=== PATIENT | male | born 1950 | race Caucasian/White ===

== ENCOUNTER → 2023-05-15 | Outpatient (CLI) | payer MEDICARE, OTHER, SELFPAY ==
--- NOTE | 2023-05-15 07:30 | PET_ITS ---
EXAMINATION: FDG PET/CT INDICATIONS: 73-year-old male with a history of multiple myeloma presenting for restaging examination. COMPARISON EXAMINATION: None available INDEX LESION SIZE SUV INTERPRETATION Carinal-level mediastinum to the left of the midline ? 2.5 max Quantitative criteria for viable neoplasm are not fulfilled ? TECHNIQUE: Following the intravenous administration of 13.496 mCi of F-18 deoxyglucose via the right hand, multiplanar image acquisitions of the head, neck, chest, abdomen, pelvis, and lower extremities to the level of the bilateral forefoot, obtained at one-hour post radiopharmaceutical administration contemporaneously interpreted with the current CT of the chest, abdomen, pelvis, and lower extremities dated 05/15/2023. Via coregistration reveal: SERUM GLUCOSE LEVEL: 90 mg/dL HEIGHT: 66 inches WEIGHT: 176 pounds FINDINGS: HEAD/NECK: There is no evidence of abnormal increased glucose metabolism in the pharyngeal mucosal space, parapharyngeal space, oropharynx, bilateral-lateral and anterior neck, hypopharynx and distribution of the larynx. The visualized portion of the cerebral cortical-subcortical structures demonstrate symmetric and preserved glucose metabolism. CHEST: Enhanced tracer uptake is noted in the carinal-level mediastinum to the left of the midline involving the left lower paratracheal lymph nodes involving lymph node station 4L. The calculated standard uptake value is 2.5. There is visualized radiopharmaceutical concentration noted in the left ventricular myocardium, consistent with the fed state. CT of the chest demonstrates the following anatomic characteristics: Atherosclerotic calcification is defined in the thoracic aorta without evidence of dilatation, aneurysm formation. Coronary arterial calcification is observed. Calcified and non-calcified mediastinal and thoracic perihilar as well as bilateral axillary soft tissue densities are ametabolic. There are no parenchymal densities-nodules defined in the right and left hemithorax with quantitatively significant increased FDG uptake. ABDOMEN/PELVIS: Normal physiologic distribution of the radiopharmaceutical is identified in the hepatic and splenic parenchyma, both renal units, urinary bladder, and visualized intestinal tract. Diffuse intestinal tract is identified in all four quadrants of the abdomen and pelvis. CT of the abdomen and pelvis is remarkable for the following: Atherosclerotic calcification is defined in the abdominal aorta without evidence of dilatation, aneurysm formation. Abdominal-pelvic arterial calcification is observed. Calcified phlebolith formation is noted in the bilateral lower hemipelvis. Right-left inguinal soft tissue densities are ametabolic. Minimal calcification is defined within the prostate gland. SKELETAL: A compression deformity is noted at the level of the first lumbar vertebra. Degenerative changes defined in the thoracic and lumbar spine demonstrate no evidence of increased glucose metabolism. There are no sclerotic, mixed sclerotic-lytic, or primarily lytic changes defined in the axial skeletal structures with evidence of increased FDG uptake. PET/PET/CT Tumor WB Initial IMPRESSION: 1. NEGATIVE EXAMINATION. There is no definitive quantitatively significant scintigraphic evidence of recurrent-viable neoplasm. 2. Facilitated uptake noted in the left lower paratracheal lymph node station does not fulfill quantitative criteria for malignant transformation. (Angela et al, Journal of Clinical Oncology, 16:2142, 1998). Electronic Signature Shai Woo D.O. Accurate Quantification of SUVs for this report are calculated using the exclusive [employer]. (U.S. Patent No. [id number] [phone] B2 US [phone] [place] patent [phone]). Standardization and correction of the FDG SUV metric via [employer] technology allow for vendor non-specific objective quantitative examination comparison and optimization of the sensitivity and specificity of the FDG PET-CT examination. Electronically Signed: Shai Woo, at 8:00 EDT ,
== END | disposition home or self-care (01) ==
LOC: ONC 07:07
PROVIDERS: PCP Internal Medicine; Referring Provider Internal Medicine Hematology & Oncology; Visit Provider Internal Medicine Hematology & Oncology
DX: C90.00 Multiple myeloma not having achieved remission (principal)
CPT/HCPCS: 78816; A9552

== ENCOUNTER → 2023-07-17 | Outpatient (CLI) | payer OTHER, SELFPAY | END | disposition home or self-care (01) | LOC: LABSPEC 12:00 | PROVIDERS: PCP Internal Medicine; Referring Provider Internal Medicine Hematology & Oncology; Visit Provider Internal Medicine Hematology & Oncology | DX: C90.00 Multiple myeloma not having achieved remission (principal) | CPT/HCPCS: 86850; 86900; 86901 ==

== ENCOUNTER 2024-01-28 15:09 | Inpatient (IN) | payer OTHER, MEDICARE, SELFPAY ==
[2024-01-28] VITALS (12 sets, daily range): BP systolic 117–148; BP diastolic 65–78; PULSE 71–75; RESP 18–25; TEMP 36.8–38.4; O2SAT 90–96; BMI 31.4; BMI 30.9
--- NOTE | 2024-01-28 15:33 | EKG12_ITS ---
Test Reason : SOB Blood Pressure : / mmHG Vent. Rate : 070 BPM Atrial Rate : 070 BPM P-R Int : 204 ms QRS Dur : 092 ms QT Int : 378 ms P-R-T Axes : 088 -26 021 degrees QTc Int : 408 ms Normal sinus rhythm Inferior infarct , age undetermined Abnormal ECG Confirmed by Ehsan Terry ([id number]), department editor TANIA CRUZ ([id number]) on 01/29/2024 1:43:59 PM Referred By: Confirmed By:Ehsan Terry
--- NOTE | 2024-01-28 15:34 | ED.VIS.DYS ---
HPI History of Present Illness Chief Complaint: Shortness of Breath Informant: patient and spouse/S.O. Narrative Narrative: 74-year-old male has multiple myeloma, usually does 3 weeks of treatments and then has 1 week off and during that week, follows with oncology in the clinic for a checkup which is what he was doing today with Dr. Venegas, it was noticed that his oxygen levels were low, he is not on oxygen at home, so he was sent to the ER for further evaluation. Patient states he has had dyspnea with exertion for couple weeks that has been relatively mild not severe. No chest discomfort with exertion. He has a chronic minor cough, it has been worse for the last 2 or 3 days, he is coughed up some occasional small amount of blood in the past week or so. He denies any history of DVT or PE, denies any recent focal leg pain or swelling although he does have chronic edema both of his legs that is doing relatively well with his compression stockings, and denies any pleuritic chest discomfort, or syncopal episodes recently. Says he has felt cold and hot like he may have a fever, the last time was yesterday, but has not checked his temperature. He denies any history of chronic lung problems. He had stent placed in his heart 20 years ago but denies any known other heart issues. [facility] Medical History (Updated 01/28/24 @ 18:50 by Isamar Myers) CAD (coronary artery disease) Chest pain CPAP (continuous positive airway pressure) dependence Depression Hypertension Multiple myeloma Myocardial infarct Non-smoker Sleep apnea Home Medications amlodipine 10 mg tablet 10 mg PO DAILY 01/28/24 [History Last Taken 01/28/24 08:00] aspirin 325 mg tablet 325 mg PO QHS 01/28/24 [History Last Taken Unknown] cholecalciferol (vitamin D3) 125 mcg (5,000 unit) tablet (Vitamin D3) 125 mcg PO QHS 01/28/24 [History Last Taken Unknown] ezetimibe 10 mg tablet 10 mg PO DAILY 01/28/24 [History Last Taken Unknown] lansoprazole 30 mg capsule,delayed release (Prevacid) 30 mg PO DAILY 01/28/24 [History Last Taken Unknown] niacin 1,000 mg tablet,extended release 24 hr 2,000 mg PO DAILY 01/28/24 [History Last Taken 01/28/24 08:00] nitroglycerin 0.4 mg sublingual tablet 0.4 mg sublingual UD 01/28/24 [History Last Taken Unknown] ramipril 10 mg capsule 10 mg PO BID 01/28/24 [History Last Taken Unknown] Allergy/AdvReac Type Severity Reaction Status Date / Time No Known Allergies Allergy Verified 01/28/24 15:09 Surgical History (Updated 01/28/24 @ 18:48 by Isamar Myers) History of coronary artery stent placement Social History (Updated 01/28/24 @ 17:[address] Cale Webster, DO) Smoking Status: Unknown if ever smoked alcohol intake: current alcohol intake frequency: 3 or more drinks per day ROS ROS ED Constitutional Constitutional ED: Reports fever(s) and subjective; Denies chills Eyes Eyes: Denies change in vision or diplopia ENT ENT ED: Denies rhinorrhea or sore throat Cardiovascular Cardiovascular: Reports leg edema; Denies chest pain, lightheadedness, palpitations or syncope Respiratory/Chest Respiratory/Chest: Reports cough, dyspnea on exertion and other Details: rare streaky hemoptysis in past week; no other sputum Gastrointestinal Gastrointestinal: Denies abdominal pain, diarrhea, nausea or vomiting Genitourinary Genitourinary ED: Denies dysuria or hematuria Musculoskeletal Musculoskeletal: Denies back pain or neck pain Integumentary Denies abscess or rash Neurologic Neurologic: Denies headache(s), paresthesias or weakness Psychiatric Psychiatric: Denies anxiety or suicidal thoughts EXAM Physical Exam Const Vital Signs: 01/28/24 15:09 01/28/24 15:25 01/28/24 15:37 Temperature 98.2 F Temperature Source Temporal Pulse Rate 71 71 Respiratory Rate 18 25 H Respiratory Effort Short of Breath Blood Pressure 129/78 H 128/65 H Blood Pressure Mean 95 86 Pulse Ox 94 92 Oxygen Delivery Method Room Air Room Air Room Air Oxygen Flow Rate (L/min) 01/28/24 15:52 01/28/24 16:02 01/28/24 16:14 Temperature Temperature Source Pulse Rate 71 Respiratory Rate 22 H Respiratory Effort Blood Pressure 139/74 H Blood Pressure Mean 95 Pulse Ox 91 95 92 Oxygen Delivery Method Nasal Cannula Nasal Cannula Nasal Cannula Oxygen Flow Rate (L/min) 3 2 2 01/28/24 17:34 Temperature 99.3 F H Temperature Source Pulse Rate 74 Respiratory Rate 23 H Respiratory Effort Blood Pressure 134/70 H Blood Pressure Mean 91 Pulse Ox 94 Oxygen Delivery Method Oxygen Flow Rate (L/min) Positive well nourished and well developed General Appearance ED: well developed and NAD HEENT Reports moist mucous membranes normocephalic and atraumatic Eyes PERRL and EOMs intact bilaterally Neck full ROM, no lymphadenopathy, supple, no meningeal signs and no JVD Resp normal respiratory effort and clear to auscultation bilaterally Cardio regular rate, regular rhythm and no murmurs Rate: Negative for tachycardic GI non-tender and non-distended Auscultation: normoactive bowel sounds Palpation: soft Back/Spine no CVA tenderness General Back: other FROM Extremity normal to inspection General Extremety ED: Yes edema; Negative for pulses abnormal or tenderness General Extremity: edema bilateral lower extremity Details: mild; Negative for pulses abnormal Neuro oriented x3, CN's II-XII intact bilaterally and no sensory deficits noted Sensorium / Orientation: awake and alert Motor Exam: strength 5/5 throughout Psych mental status grossly normal Skin no rashes or lesions noted and no wounds MDM MDM MDM Narrative Medical decision making narrative: Patient diffusely diminished clinically, but no other adventitious breath sounds and breathing well at rest. He did down into the high 80s on room air, just resting. He required 2 L nasal cannula to keep him above 90%. 2 view chest x-ray my interpretation shows bilateral lower lobe infiltrates, radiology in agreement with this. Given his clinical symptoms, this is consistent with the cause for his hypoxemia and I do not think he needs CTA right now nor a D-dimer since he does not have any asymmetric edema in his legs nor pleuritic chest discomfort. Given his hypoxemia and he does not have home oxygen or any chronic lung problems, plan is for admission. IV Levaquin started. He is not septic. Lab Data Attestation: I reviewed the patient's lab results. Labs: Laboratory Results - last 24 hr 01/28/24 16:00 WBC 7.0 RBC 3.63 L Hgb 12.3 L Hct 35.8 L MCV 98.6 H MCH 33.9 H MCHC 34.4 RDW Std Deviation 53.5 H RDW Coeff of Cheryle 14.6 Plt Count 277 MPV 9.6 Immature Gran % (Auto) 0.700 Neut % (Auto) 70.7 H Lymph % (Auto) 5.3 L [place] % (Auto) 20.4 H Eos % (Auto) 1.9 Baso % (Auto) 1.0 Absolute Neuts (auto) 5.0 Absolute Lymphs (auto) 0.37 L Nucleated RBC % 0 Sodium 128 L Potassium 4.1 Chloride 97 L Carbon Dioxide 24.0 Anion Gap 7 BUN 9 Creatinine 0.88 Estim Creat Clear Calc 79.28 Est GFR (MDRD) Af Amer 109 Est GFR (MDRD) Non-Af 90 BUN/Creatinine Ratio 10.2 Glucose 96 Calcium 8.6 Troponin I High Sens 12 B-Natriuretic Peptide 119.9 H Radiography Diagnostic Testing: Clinical Impression(s) from Imaging Studies Chest X-Ray 01/28/24 16:04 IMPRESSION: Bilateral lower lobe pneumonia. Electronically Signed: Josué Lee MD at 16:24 EDT , Rhythm Strip Rhythm Strip: Sinus Rhythm Rate: 70 Ectopy: None EKG Initial EKG: Attestation: I personally reviewed and interpreted this EKG as follows: Interpretation: Sinus Rhythm and No Acute Injury Pattern Prior EKG tracings: not available for review Management Discussion w/another healthcare provider: Hospitalist Discharge Plan Dx/Rx/DC Orders Clinical Impression: Acquired immunocompromised state, Hypoxemia, Pneumonia of both lower lobes, Multiple myeloma Disposition Disposition: Acute Care Hospital [facility] Discharge Date/Time: 01/28/24 18:21
--- NOTE | 2024-01-28 15:36 | ED.RN ---
NO OLD EKG
--- NOTE | 2024-01-28 16:04 | RAD_ITS ---
EXAM: XR CHEST, 2 VIEWS CLINICAL INDICATION: cough, ROMERO TECHNIQUE: Frontal and lateral views of the chest. COMPARISON: No relevant prior studies available. FINDINGS: LUNGS AND PLEURAL SPACES: Parenchymal opacities noted on the lateral view suggestive of bilateral lower lobe pneumonia. HEART: Normal heart size. MEDIASTINUM: No mediastinal or hilar mass. BONES/JOINTS: Prominent compression deformity of the L1 vertebral body noted associated with vertebroplasty change. RAD/Chest PA and Lateral IMPRESSION: Bilateral lower lobe pneumonia. Electronically Signed: Josué Lee MD at 16:24 EDT ,
[2024-01-28 16:19] LABS: Absolute Lymphocyte Count 0.37 X10^3/uL (0.83-4.51); Basophil# 0.07 X10^3/uL; Eosinophil# 0.13 X10^3/uL; Eosinophils% 1.9 % (0-5); Hematocrit 35.8 % (40-54); Hemoglobin 12.3 g/dL (13.0-16.5); Lymphocyte # 0.37 X10^3/ul (0.83-4.51); Lymphocyte % 5.3 % (19-41); Mean Corp Hgb Conc 34.4 g/dL (32-36); Mean Corpuscular Hgb 33.9 pg (27.0-32.0); Mean Corpuscular Volume 98.6 fL (80-94); Mean Platelet Vol. 9.6 fl (6.2-12.0); Monocyte# 1.43 X10^3/uL; Monocyte% 20.4 % (0-10); NRBC Flagged by Analyzer 0 % (0-5); Neutrophil # 4.96 X10^3/uL (2.7-7.7); Neutrophil % 70.7 % (47-70); POSITIVE DIFFERENTIAL YES; Platelet Count 277 K/mm3 (150-450); RBC Distribution Width CV 14.6 % (11.6-14.6); RBC Distribution Width SD 53.5 fl (35.1-43.9); Red Blood Count 3.63 M/mm3 (4.6-6.2)
[2024-01-28 17:00] LABS: Anion Gap 7 (5-15); BUN 9 mg/dL (7-18); BUN/Creat Ratio 10.2 RATIO (10-20); Calcium,Total 8.6 mg/dL (8.5-10.1); Chloride 97 mmol/L (98-107); Creatinine, Serum 0.88 mg/dL (0.70-1.30); EST Glomerular Filtration Rate 90 mL/min (>60); Est Glom Filt Rate - Afr Amer 109 mL/min (>60); Estimated Creatinine Clearance 79.28 ml/min; Glucose 96 mg/dL (74-106); Potassium 4.1 mmol/L (3.5-5.1); Sodium Level 128 mmol/L (136-145); Troponin-I HS 12 pg/mL (3.0-78.0)
[2024-01-28] MEDS: levoFLOXacin IV 750 MG/150 ML BAG 100 MG IV (17:30)
[2024-01-28 17:44] LABS: BNP,B-Type NATRIURETIC PEPTIDE 119.9 pg/mL (0-100)
--- NOTE | 2024-01-28 17:46 | HP.PCM.HOS_ITS ---
HPI - General General Date of Service: 01/28/24 Chief Complaint: Shortness of breath HPI Narrative MARIO DE LA FUENTE, is a 74 M who presents with shortness of breath. Been going on for past few days. Went to see his oncologist who noted that his pulse ox was low and sent to the emergency room. In the emergency room, is noted that he had possibly infiltrates bilaterally. Patient received IV levofloxacin in the emergency room. Patient was also placed on oxygen. When taken off the oxygen, his oxygen dropped down to 87% but was able to maintain good oxygenation with 2 L nasal cannula. [facility] Medical History (Updated 01/28/24 @ 17:[address] Cale Webster DO) CAD (coronary artery disease) Hypertension Multiple myeloma Home Medications amlodipine 10 mg tablet 10 mg PO DAILY 01/28/24 [History Last Taken 01/28/24 08:00] aspirin 325 mg tablet 325 mg PO QHS 01/28/24 [History Last Taken Unknown] cholecalciferol (vitamin D3) 125 mcg (5,000 unit) tablet (Vitamin D3) 125 mcg PO QHS 01/28/24 [History Last Taken Unknown] ezetimibe 10 mg tablet 10 mg PO DAILY 01/28/24 [History Last Taken Unknown] lansoprazole 30 mg capsule,delayed release (Prevacid) 30 mg PO DAILY 01/28/24 [History Last Taken Unknown] niacin 1,000 mg tablet,extended release 24 hr 2,000 mg PO DAILY 01/28/24 [History Last Taken 01/28/24 08:00] nitroglycerin 0.4 mg sublingual tablet 0.4 mg sublingual UD 01/28/24 [History Last Taken Unknown] ramipril 10 mg capsule 10 mg PO BID 01/28/24 [History Last Taken Unknown] Allergy/AdvReac Type Severity Reaction Status Date / Time No Known Allergies Allergy Verified 01/28/24 15:09 Social History (Updated 01/28/24 @ 17:[address] Cale Webster DO) Smoking Status: Unknown if ever smoked alcohol intake: current alcohol intake frequency: 3 or more drinks per day ROS ROS Narrative Sore throat. Coughing but nonproductive. All review of systems were negative except as mentioned above in the history of present illness and the other review of systems. Vital Signs Vital Signs Vital Signs: 01/28/24 15:09 01/28/24 15:25 01/28/24 15:37 Temperature 36.8 C Temperature Source Temporal Pulse Rate 71 71 Respiratory Rate 18 25 H Respiratory Effort Short of Breath Blood Pressure 129/78 H 128/65 H Blood Pressure Mean 95 86 Pulse Ox 94 92 Oxygen Delivery Method Room Air Room Air Room Air Oxygen Flow Rate (L/min) 01/28/24 15:52 01/28/24 16:02 01/28/24 16:14 Temperature Temperature Source Pulse Rate 71 Respiratory Rate 22 H Respiratory Effort Blood Pressure 139/74 H Blood Pressure Mean 95 Pulse Ox 91 95 92 Oxygen Delivery Method Nasal Cannula Nasal Cannula Nasal Cannula Oxygen Flow Rate (L/min) 3 2 2 01/28/24 17:34 Temperature 37.4 C H Temperature Source Pulse Rate 74 Respiratory Rate 23 H Respiratory Effort Blood Pressure 134/70 H Blood Pressure Mean 91 Pulse Ox 94 Oxygen Delivery Method Oxygen Flow Rate (L/min) Weight Weight: 91.127 kg Body Mass Index (BMI) 31.4 Physical Exam Const alert and no apparent distress HEENT normocephalic, head/scalp atraumatic, hearing grossly normal bilaterally and moist oral mucous membranes Eyes PERRL and EOMs intact bilaterally Neck no lymphadenopathy and supple Resp normal respiratory effort, no retractions, no use of accessory muscles and clear to auscultation bilaterally Cardio regular rate, regular rhythm, S1 normal heart sound and S2 normal heart sound GI normal to inspection, nondistended, normoactive bowel sounds, soft to palpation, non-tender, non-distended and hepatosplenomegaly Extremity normal to inspection and no clubbing, cyanosis or edema Neuro moves all extremities Sensorium / Orientation: awake and alert Psych affect normal Results Lab / Micro Data Attestation: I reviewed the patient's lab results. 01/28/24 16:00 01/28/24 16:00 Labs: Laboratory Results - last 24 hr 01/28/24 16:00: WBC 7.0, RBC 3.63 L, Hgb 12.3 L, Hct 35.8 L, MCV 98.6 H, MCH 33.9 H, MCHC 34.4, RDW Std Deviation 53.5 H, RDW Coeff of Cheryle 14.6, Plt Count 277, MPV 9.6, Immature Gran % (Auto) 0.700, Neut % (Auto) 70.7 H, Lymph % (Auto) 5.3 L, [place] % (Auto) 20.4 H, Eos % (Auto) 1.9, Baso % (Auto) 1.0, Absolute Neuts (auto) 5.0, Absolute Lymphs (auto) 0.37 L, Nucleated RBC % 0, Sodium 128 L, Potassium 4.1, Chloride 97 L, Carbon Dioxide 24.0, Anion Gap 7, BUN 9, Creatinine 0.88, Estim Creat Clear Calc 79.28, Est GFR (MDRD) Af Amer 109, Est GFR (MDRD) Non-Af 90, BUN/Creatinine Ratio 10.2, Glucose 96, Calcium 8.6, Troponin I High Sens 12, B-Natriuretic Peptide 119.9 H Micro: Microbiology 01/28/24 15:55 Mucosa - Nasopharyngeal SARS-CoV-2, Influenza & RSV (PCR) - Final Rhythm Strip Rhythm Strip: Sinus Rhythm Rate: 70 Ectopy: None EKG Initial EKG: Attestation: I personally reviewed and interpreted this EKG as follows: Prior EKG tracings: available for review EKG Rhythm Intrepretation: Sinus Rhythm (Inferior Q waves) Imaging Radiology Impression Chest X-Ray 01/28/24 16:04 IMPRESSION: Bilateral lower lobe pneumonia. Electronically Signed: Josué Lee MD at 16:24 EDT , Assessment & Plan Assessment/Plan (1) Pneumonia of both lower lobes: PLAN: Plan Suspected pneumococcal pneumonia * Patient received levofloxacin in emergency room, will continue on the floor. * Pep therapy * Check sputum culture, check strep and Legionella antigens., With a sore throat, will check a strep a test. Acute hypoxic respiratory insufficiency * Other than being short of breath, patient related having complaints in regards to being hypoxic. * Currently tolerating 2 L nasal cannula. Wean oxygen as tolerated. Cannot rule out the possibility patient need oxygen upon discharge. Hyponatremia * Unclear if acute or chronic. Asymptomatic at present. No treatment at this time but monitor. Review of medications does not show any obvious culprits. Chronic conditions * Multiple myeloma: Follows with Dr. Venegas. PET scan from May was negative for any malignancy. * CAD: Remote. Continue with aspirin. * Hypertension: Continue with amlodipine and ramipril. VTE prophylaxis with enoxaparin. CODE STATUS: Addressed with the patient and spouse. Patient wishes to be full code at this time. It appears that his first time the patient had this conversation police none that he is remembers before. So he was not completely sure about his decision but I told him if he does decide a later point to let us know and that we could change his CODE STATUS during hospitalization. Charges/Coding Visit Charges Inpatient E&M: 74405 Init Hosp L3
[2024-01-28] MEDS: Acetaminophen 325 MG Tablet 650 MG PO (19:55)
[2024-01-28] MEDS: Ramipril 10 MG Capsule PO (21:16)
[2024-01-28] MEDS: Aspirin 325 MG Tablet PO (21:16)
[2024-01-28] MEDS: Cholecalciferol (Vit D3) 125 MCG CAPSULE (5,000 UNITS) PO (21:16)
[2024-01-29] VITALS (8 sets, daily range): BP systolic 101–127; BP diastolic 68–84; PULSE 64–74; RESP 18–20; TEMP 36.8–37.9; O2SAT 92–95
[2024-01-29 07:14] LABS: Absolute Lymphocyte Count 0.26 X10^3/uL (0.83-4.51); Basophil# 0.06 X10^3/uL; Basophil% 0.9 % (0-1); Eosinophil# 0.19 X10^3/uL; Eosinophils% 2.7 % (0-5); Hematocrit 35.5 % (40-54); Hemoglobin 12.1 g/dL (13.0-16.5); Lymphocyte # 0.26 X10^3/ul (0.83-4.51); Lymphocyte % 3.7 % (19-41); Mean Corp Hgb Conc 34.1 g/dL (32-36); Mean Corpuscular Hgb 33.3 pg (27.0-32.0); Mean Corpuscular Volume 97.8 fL (80-94); Mean Platelet Vol. 9.8 fl (6.2-12.0); Monocyte# 1.42 X10^3/uL; Monocyte% 20.4 % (0-10); NRBC Flagged by Analyzer 0 % (0-5); Neutrophil % 71.7 % (47-70); POSITIVE DIFFERENTIAL YES; Platelet Count 269 K/mm3 (150-450); RBC Distribution Width CV 14.4 % (11.6-14.6); Red Blood Count 3.63 M/mm3 (4.6-6.2)
[2024-01-29 08:03] LABS: Anion Gap 10 (5-15); BUN 6 mg/dL (7-18); Calcium,Total 8.4 mg/dL (8.5-10.1); Chloride 98 mmol/L (98-107); Creatinine, Serum 0.75 mg/dL (0.70-1.30); EST Glomerular Filtration Rate 109 mL/min (>60); Est Glom Filt Rate - Afr Amer 132 mL/min (>60); Estimated Creatinine Clearance 86.46 ml/min; Glucose 108 mg/dL (74-106); Potassium 3.6 mmol/L (3.5-5.1); Sodium Level 131 mmol/L (136-145)
[2024-01-29] MEDS: Ezetimibe 10 MG Tablet PO (09:38)
[2024-01-29] MEDS: Ramipril 10 MG Capsule PO ×2 (09:38→21:46)
[2024-01-29] MEDS: Pantoprazole Sodium 40 MG Tablet PO (09:38)
[2024-01-29] MEDS: amLODIPine 10 MG Tablet PO (09:38)
[2024-01-29] MEDS: levoFLOXacin IV 750 MG/150 ML BAG 100 MG IV (09:38)
[2024-01-29] MEDS: Enoxaparin 40 MG/0.4 ML Syringe SC (09:38)
--- NOTE | 2024-01-29 11:22 | CASEMGMT ---
JOVITA JACQUES Assessment Face to Face with patient for initial transition planning/care coordination assessment. JOVITA JACQUES introduced self and role at [facility], pt voices understanding. Pt is A&Ox4 and is resting comfortably in bed and is calm. Pt at bedside. Care providers, pharmacy, and demographics verified. Admitting dx: Pneumonia PCP: Rustam Specialists: Rubi (Oncology), Satya (Cardio in [place]) Preferred Pharmacy: [facility] during this stay. Pt normally utilizes [facility] in [place] Insurance: [facility] [employer], [employer] Prescription Benefit: Yes LNOK: Antoinette Godinez (W) Living Arrangements: Pt lives with his in a single story home with a BM with 3 steps to enter with a HR. Pt denies using the BM. ADLs/IADLs: States Ind Transportation: Self, DME: Walker and cane at home but does not normally use. Shower chair. Pt states that he has a CPAP at home but states that he cannot get used to it. Pt is currently on 2L of O2. A verbal list of local in-network DME companies provided to the pt at this time. Pt chose [employer] for potential home going O2 needs. CM to follow. HHC/SNF: Denies History or needs. Pt?s goal: Home no needs. Plan: 6 Click is 20. No therapy ordered. Pt denies HHC or OP therapy needs at this time. Pt states that he feels safe going home at time of DC. CM to follow for safe DC from [facility]. Tamera Virk RN, CM
--- NOTE | 2024-01-29 14:57 | CHAPLAIN ---
Type of Pastoral Visit _x__ Initial Visit ___ Follow-up Visit ___ On-call Visit ___ General Patient Visit ___ Spiritual Assessment ___ Family Conference ___ Bereavement ___ Rapid Response ___ Code Blue ___ Other (describe below) Pastoral Care Referral From ___ Patient _x__ Family ___ Nurse ___ Physician ___ Line Patrolman ___ Equipment Installation Professional ___ Other (describe below) Sacrament/Intervention ___ Active listening ___ Anointing ___ Lutheran ___ Bereavement ___ Communion ___ Toshia exploration ___ ___ Life review _x__ Prayer ___ Reconciliation ___ Sacrament of Sick _x__ Supportive presence ___ Wedding ___ Other (describe below) Pastoral Comments patient had several family members in the room; pt is seemingly hesitant to answer questions or unable to explain his own situation or feelings; family members help fill in the answers; spouse asks for a prayer; no other needs revealed or acknowledged
--- NOTE | 2024-01-29 17:17 | PN.HOSP_ITS ---
Reason for Visit Reason for Visit: Shortness of breath Subjective Subjective Patient is a 74-year-old white male who presented to the emergency department at [facility] with shortness of breath that had been ongoing for the past several days. He has a history of multiple myeloma and was following up with his oncologist who noted that he was hypoxic in his office so he was sent to the emergency department. Vital signs on presentation showed a temperature of 36.8, heart rate 71, respiratory was 18 and oxygen saturation was 94% on room air with a blood pressure 129/78. His CBC was unremarkable other than a very mild left shift with a 70.7% neutrophilia and a white count of 7. His chemistry panel showed hyponatremia with a sodium of 128 and an unknown baseline. His BNP was mildly elevated at 119.8. Troponin was normal. COVID/influenza/RSV was unremarkable. He complains of some pharyngitis so rapid strep was performed and unremarkable. Strep pneumo and Legionella antigens were negative. Chest x-ray was suggestive of bilateral lower lobe pneumonia. He was admitted to the medical floor and placed on Levaquin and Pep therapy. Objective Data Objective Data Vital Signs: Vital Signs Temp Pulse Resp BP Pulse Ox O2 Del Method O2 Flow Rate 100.3 F H 64 18 121/69 H 95 Nasal Cannula 2 01/29/24 15:00 01/29/24 15:00 01/29/24 15:03 01/29/24 15:00 01/29/24 15:00 01/29/24 15:03 01/29/24 15:03 Oxygen Flow Rate (L/min) 2 Oxygen Delivery Method Nasal Cannula Weight: 89.5 kg Body Mass Index (BMI) 30.9 Intake & Output: Intake and Output for Last 24 Hours 01/27/24 01/28/24 01/29/24 23:59 23:59 23:59 Intake Total 150 / 450 750 / 750 Output Total 300 / 300 Balance 150 / 150 450 / 450 Lab / Micro Data 01/29/24 06:21 01/29/24 06:21 Labs: Laboratory Results - last 24 hr 01/28/24 16:00: B-Natriuretic Peptide 119.9 H 01/29/24 06:21: WBC 7.0, RBC 3.63 L, Hgb 12.1 L, Hct 35.5 L, MCV 97.8 H, MCH 33.3 H, MCHC 34.1, RDW Std Deviation 52.0 H, RDW Coeff of Cheryel 14.4, Plt Count 269, MPV 9.8, Immature Gran % (Auto) 0.600, Neut % (Auto) 71.7 H, Lymph % (Auto) 3.7 L, Nance % (Auto) 20.4 H, Eos % (Auto) 2.7, Baso % (Auto) 0.9, Absolute Neuts (auto) 5.0, Absolute Lymphs (auto) 0.26 L, Nucleated RBC % 0, Sodium 131 L, Potassium 3.6, Chloride 98, Carbon Dioxide 23.0, Anion Gap 10, BUN 6 L, Creatinine 0.75, Estim Creat Clear Calc 86.46, Est GFR (MDRD) Af Amer 132, Est GFR (MDRD) Non-Af 109, BUN/Creatinine Ratio 8.0 L, Glucose 108 H, Calcium 8.4 L Micro: Microbiology 01/28/24 21:05 Urine, Random Legionella Antigen - Final 01/28/24 21:05 Urine, Random Streptococcus pneumoniae Antigen (M - Final 01/28/24 19:55 Mucosa - Throat Streptococcus pyogenes (PCR) - Final 01/28/24 15:55 Mucosa - Nasopharyngeal SARS-CoV-2, Influenza & RSV (PCR) - Final Rhythm Strip Rhythm Strip: Sinus Rhythm Rate: 70 Ectopy: None Physical Exam Const alert, oriented x3, no apparent distress and well nourished; Negative for average body habitus or healthy appearing Constitutional Narrative: Obese, older, white male, appears shaky and dilatated transferring to a wheelchair from his bed, at bedside, 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, appears ill but not toxic HEENT head/scalp atraumatic and moist oral mucous membranes Head and Scalp: normocephalic Resp no retractions, no use of accessory muscles and clear to auscultation bilaterally Resp Narrative: Mild tachypnea with exertion Auscultation: Negative for rales, rhonchi or wheezes Cardio regular rate, regular rhythm, S1 normal heart sound, S2 normal heart sound, no murmurs, no rub, no gallops and no clicks GI normal to inspection, nondistended, normoactive bowel sounds, soft to palpation and non-tender Extremity no clubbing, cyanosis or edema Extremity Narrative: Pedal pulses are 2+ Neuro oriented x3, moves all extremities and no focal motor deficits Speech: speech normal Psych affect normal Psych Narrative: Interacts appropriately, very pleasant Assessment & Plan Assessment/Plan (1) Hypoxemia: (2) Elevated brain natriuretic peptide (BNP) level: (3) Shortness of breath: (4) Hyponatremia: PLAN: Plan Hypoxia with shortness of breath -Check CTA -Continue antibiotics for now with Levaquin and add vancomycin -Strep pneumo and Legionella antigens are unremarkable -COVID/flu/RSV negative -Check respiratory viral panel -Check MRSA PCR -Check blood cultures -Patient without leukocytosis -Continue Pep therapy -Still remains on 2 L supplemental oxygen -Wean as able -Check ambulatory pulse ox prior to discharge -Will give Lasix 40 mg IV x 1 dose Hyponatremia -Baseline is unclear -Sodium is improving -Repeat lab in a.m. Generalized weakness -PT/OT consultation Multiple myeloma -Follows with Dr. Venegas -Per patient report no disease found on follow-up PET scan from May Anemia -Baseline unclear however stable on reevaluation today -Continue to monitor History of nonobstructive CAD -Continue home full dose aspirin -Continue modification of risk factors Hypertension -Continue home amlodipine -Continue home ramipril Hyperlipidemia -Continue home Zetia -Continue home niacin Vitamin D deficiency -Continue home cholecalciferol GERD -Continue Prevacid DVT prophylaxis -Continue enoxaparin CODE STATUS Full code Charges/Coding Visit Charges Inpatient E&M: 63282 Subs Hosp L2
--- NOTE | 2024-01-29 17:20 | CT_ITS ---
STUDY: CTA CHEST REASON FOR EXAM: Male, 74 years old. PE RADIATION DOSAGE (If Supplied By Facility): CTDIvol = ( 15.28 ) mGy, DLP = ( 510.43 ) mGycm TECHNIQUE: The examination was performed with the intravenous administration of IV 100mL Isovue-370. Post-processing of the angiographic images was performed, with multiplanar reformation and 3D reconstruction. Individualized dose optimization techniques were used for this CT. COMPARISON: None. FINDINGS: Normal enhancement of the main pulmonary artery and right and left pulmonary arteries. Normal enhancement of the bilateral peripheral pulmonary arteries. There is no demonstrated pulmonary embolism. Normal thoracic aorta and visualized great vessels. There is no demonstrated aortic dissection. Normal heart and pericardium. There is multifocal coronary artery calcification Small subcentimeter mediastinal nodes likely benign. Normal hilar regions. Normal visualized trachea and bronchi. The lungs are well expanded. Mild interstitial thickening in the upper lobes bilaterally with patchy areas of groundglass opacity possibly due to inflammatory disease.. There is also a small right pleural effusion and compressive atelectasis within the right lower lobe Normal pleura. Normal chest wall structures. Dorsal spine demonstrates degenerative change. Old compression fracture of L1 status post kyphoplasty Normal visualized upper abdomen. CT/CTA Chest W/WO Contrast IMPRESSION: Mild bilateral interstitial thickening in the upper lobes with patchy areas of groundglass opacity possibly due to inflammatory disease. Tiny right pleural effusion and compressive atelectasis in the right lower lobe No evidence for pulmonary embolus Electronically Signed: Silvestre Michaels MD at 19:40 EDT Reading Location ID and State: [facility] / [place] Tel , Service support ,
--- NOTE | 2024-01-29 20:23 | ECHOCS_ITS ---
Reason For Study: CONGESTIVE HEART FAILURE Procedure This was a 2D Doppler, Color Flow transthoracic echocardiogram. Contrast injection was performed. Exam performed portable in patient room. Left Ventricle Normal LV size. Mild concentric left ventricular hypertrophy. The estimated ejection fraction is 40 %. Normal diastology for age. [place] is hypokinetic. Right Ventricle Normal RV size. Normal systolic function. Atria Normal left atrium. Normal right atrium. Mitral Valve The mitral valve is structurally normal. No prolapse or stenosis seen. Mild (1+) mitral valve insufficiency. Tricuspid Valve Normal tricuspid valve. Trivial tricuspid valve insufficiency. Unable to estimate RV systolic pressure due to insufficient tricuspid regurgitant envelope. Aortic Valve Trisinus/trileaflet aortic valve. Pulmonic Valve The pulmonic valve is not well visualized. Trivial pulmonic valve insufficiency. Great Vessels Normal aortic root. Pericardium/Pleural No pericardial effusion. Medication Diluted definity 2.5ml given slow IV push to enhance endocardial definition. MMode/2D Measurements & Calculations LVIDd: 4.7 cm IVSd: 1.1 cm LVOT diam: 1.9 cm LVIDs: 3.7 cm LVPWd: 1.1 cm RVDd: 3.5 cm FS: 22.4 % LVOT area: 3.0 cm2 Ao root diam: 3.3 cm LAV(MOD-bp): 61.1 ml LVAd ap4: 47.7 cm2 LAV(MOD-bp) Indexed: 30.4 ml/m2 LVLd ap4: 9.2 cm LAV(MOD-sp2): 72.7 ml EDV(MOD-sp4): 196.7 ml LAV(MOD-sp4): 46.6 ml EDV(sp4-el): 209.8 ml LVAs ap4: 36.5 cm2 LVLs ap4: 8.7 cm ESV(MOD-sp4): 124.5 ml ESV(sp4-el): 130.5 ml EF(MOD-sp4): 36.7 % EF(sp4-el): 37.8 % LVAd ap2: 42.8 cm2 SV(MOD-sp4): 72.2 ml SV(MOD-sp2): 43.9 ml LVLd ap2: 9.2 cm EDV(MOD-sp2): 164.0 ml EDV(sp2-el): 169.1 ml LVAs ap2: 35.4 cm2 LVLs ap2: 9.2 cm ESV(MOD-sp2): 120.1 ml ESV(sp2-el): 115.2 ml EF(MOD-sp2): 26.8 % SV(sp4-el): 79.3 ml LA dimension(2D): 4.5 cm LA A4 area: 18.8 cm2 RA A4 area: 12.1 cm2 TAPSE: 1.7 cm Time Measurements MV dec time: 0.21 sec Doppler Measurements & Calculations MV E max jesus: 83.8 cm/sec Lat Peak E' Jesus: 8.9 cm/sec Med Peak E' Jesus: 5.9 cm/sec MV A max jesus: 91.5 cm/sec E/E' lat: 9.5 E/E' med: 14.1 MV E/A: 0.91 Ao V2 max: 147.1 cm/sec LV V1 max: 106.9 cm/sec MV dec slope: 389.9 cm/sec2 Ao max P.7 mmHg LV V1 max P.6 mmHg Ao V2 mean: 101.0 cm/sec LV V1 mean P.6 mmHg Ao mean P.7 mmHg LV V1 mean: 77.5 cm/sec Ao V2 VTI: 33.7 cm LV V1 VTI: 24.5 cm AV (velocity ratio): 0.73 [place](I,D): 2.2 cm2 [place](V,D): 2.2 cm2 SV(LVOT): 73.3 ml PA V2 max: 94.1 cm/sec PA max PG (full): 1.9 mmHg ECHO/Echo Complete W/ Contrast Interpretation Summary The estimated ejection fraction is 40 %. [place] is hypokinetic. Mild concentric left ventricular hypertrophy. Mild (1+) mitral valve insufficiency. Contrast injection was performed. There is no comparison study available. Ordering Physician: Makenzie Garcia Referring Physician: GRETCHEN MATSON Performed By: Amber Gómez RDCS
[2024-01-29] MEDS: Furosemide 20 MG/2 ML VIAL IV (21:35)
[2024-01-29] MEDS: Aspirin 325 MG Tablet PO (21:46)
[2024-01-29] MEDS: 0.9% Saline Lock 10 ML Syringe IV (21:46)
[2024-01-29] MEDS: Cholecalciferol (Vit D3) 125 MCG CAPSULE (5,000 UNITS) PO (21:46)
[2024-01-29 23:35] LABS: M R Staph aureus DNA By PCR Negative (Negative); Probe Check PASS; Specimen Processing Control PASS
[2024-01-30] VITALS (11 sets, daily range): BP systolic 112–123; BP diastolic 63–83; PULSE 56–75; RESP 18–22; TEMP 36.7–37.2; O2SAT 86–95
[2024-01-30 07:41] LABS: Absolute Lymphocyte Count 0.23 X10^3/uL (0.83-4.51); Absolute Neutrophil Count 3.8 X10^3/uL (2.0-7.7); Basophil# 0.06 X10^3/uL; Basophil% 1.1 % (0-1); Eosinophil# 0.13 X10^3/uL; Eosinophils% 2.4 % (0-5); Hematocrit 33.8 % (40-54); Hemoglobin 11.6 g/dL (13.0-16.5); Lymphocyte # 0.23 X10^3/ul (0.83-4.51); Lymphocyte % 4.3 % (19-41); Mean Corp Hgb Conc 34.3 g/dL (32-36); Mean Corpuscular Hgb 33.5 pg (27.0-32.0); Mean Corpuscular Volume 97.7 fL (80-94); Mean Platelet Vol. 9.5 fl (6.2-12.0); Monocyte# 1.09 X10^3/uL; Monocyte% 20.3 % (0-10); NRBC Flagged by Analyzer 0 % (0-5); Neutrophil # 3.81 X10^3/uL (2.7-7.7); POSITIVE DIFFERENTIAL YES; Platelet Count 263 K/mm3 (150-450); RBC Distribution Width CV 14.4 % (11.6-14.6); RBC Distribution Width SD 51.4 fl (35.1-43.9); Red Blood Count 3.46 M/mm3 (4.6-6.2); White Blood Count 5.4 K/mm3 (4.4-11.0)
[2024-01-30 08:16] LABS: ALB/GLOB Ratio 0.9 RATIO (0.9-2.4); AST(SGOT) 20 U/L (15-37); Alanine Aminotransfer ALT/SGPT 29 U/L (16-61); Albumin, Serum 2.8 g/dL (3.2-5.0); Alkaline Phosphatase 49 U/L (45-117); Anion Gap 8 (5-15); BUN 5 mg/dL (7-18); BUN/Creat Ratio 6.7 RATIO (10-20); Calcium,Total 8.2 mg/dL (8.5-10.1); Chloride 99 mmol/L (98-107); Creatinine, Serum 0.75 mg/dL (0.70-1.30); EST Glomerular Filtration Rate 108 mL/min (>60); Est Glom Filt Rate - Afr Amer 131 mL/min (>60); Estimated Creatinine Clearance 86.46 ml/min; Globulin 3.1 g/dL (2.2-4.2); Glucose 105 mg/dL (74-106); Magnesium 2.3 mg/dL (1.6-2.6); Phosphorus 2.9 mg/dL (2.5-4.9); Potassium 3.3 mmol/L (3.5-5.1); Protein, Total 5.9 g/dL (6.4-8.2); Sodium Level 131 mmol/L (136-145); Thyroid Stim Hormone (TSH) 1.94 uIU/mL (0.358-3.74)
[2024-01-30] MEDS: Potassium Chloride Oral Tablet 20 MEQ 60 MEQ PO (09:52)
[2024-01-30] MEDS: 0.9% Saline Lock 10 ML Syringe IV ×4 (09:52→22:57)
[2024-01-30] MEDS: Enoxaparin 40 MG/0.4 ML Syringe SC (09:53)
[2024-01-30] MEDS: Ramipril 10 MG Capsule PO ×2 (09:53→22:58)
[2024-01-30] MEDS: levoFLOXacin IV 750 MG/150 ML BAG 100 MG IV (09:53)
[2024-01-30] MEDS: Ezetimibe 10 MG Tablet PO (09:54)
[2024-01-30] MEDS: amLODIPine 10 MG Tablet PO (09:54)
[2024-01-30] MEDS: Pantoprazole Sodium 40 MG Tablet PO (09:54)
[2024-01-30 11:31] LABS: Procalcitonin < 0.04 ng/mL (0.00-0.09)
--- NOTE | 2024-01-30 13:55 | PCM.PN.HOSP ---
Reason for Visit Reason for Visit: Shortness of breath/hypoxia Subjective Subjective No significant issues overnight. I was informed by Dr. Venegas that the patient does have an extensive alcohol use history. Patient has not had anything to drink since Sunday and does not feel like he is having any signs of withdrawal at this time. He is still fairly short of breath with exertion however he does feel like he is a little bit better than yesterday. He is somewhat of a poor historian and has difficulty quantifying things for me. Objective Data Objective Data Vital Signs: Vital Signs Temp Pulse Resp BP Pulse Ox O2 Del Method O2 Flow Rate 98.0 F 62 18 115/68 93 Nasal Cannula 2 01/30/24 07:46 01/30/24 07:46 01/30/24 07:46 01/30/24 07:46 01/30/24 07:56 01/30/24 07:56 01/30/24 07:56 Oxygen Flow Rate (L/min) 2 Oxygen Delivery Method Nasal Cannula Weight: 89.5 kg Body Mass Index (BMI) 30.9 Intake & Output: Intake and Output for Last 24 Hours 01/28/24 01/29/24 01/30/24 23:59 23:59 23:59 Intake Total 150 / 450 750 / 1350 1000 / 1000 Output Total 300 / 800 1650 / 1650 Balance 150 / 150 450 / 550 -650 / -650 Lab / Micro Data 01/30/24 07:03 01/30/24 07:03 Labs: Laboratory Results - last 24 hr 01/29/24 21:50: MRSA (PCR) Negative 01/30/24 07:03: WBC 5.4, RBC 3.46 L, Hgb 11.6 L, Hct 33.8 L, MCV 97.7 H, MCH 33.5 H, MCHC 34.3, RDW Std Deviation 51.4 H, RDW Coeff of Cheryle 14.4, Plt Count 263, MPV 9.5, Immature Gran % (Auto) 0.900, Neut % (Auto) 71.0 H, Lymph % (Auto) 4.3 L, Elliott % (Auto) 20.3 H, Eos % (Auto) 2.4, Baso % (Auto) 1.1 H, Absolute Neuts (auto) 3.8, Absolute Lymphs (auto) 0.23 L, Nucleated RBC % 0, Sodium 131 L, Potassium 3.3 L, Chloride 99, Carbon Dioxide 24.0, Anion Gap 8, BUN 5 L, Creatinine 0.75, Estim Creat Clear Calc 86.46, Est GFR (MDRD) Af Amer 131, Est GFR (MDRD) Non-Af 108, BUN/Creatinine Ratio 6.7 L, Glucose 105, Calcium 8.2 L, Phosphorus 2.9, Magnesium 2.3, Total Bilirubin 0.40, AST 20, ALT 29, Alkaline Phosphatase 49, Total Protein 5.9 L, Albumin 2.8 L, Globulin 3.1, Albumin/Globulin Ratio 0.9, Procalcitonin < 0.04, TSH 1.94 Micro: Microbiology 01/30/24 09:45 Mucosa - Nasopharyngeal Respiratory Panel (PCR) - Final 01/30/24 09:45 Mucosa - Nasopharyngeal Coronavirus COVID-19 PCR - Final 01/28/24 21:05 Urine, Random Legionella Antigen - Final 01/28/24 21:05 Urine, Random Streptococcus pneumoniae Antigen (M - Final 01/28/24 19:55 Mucosa - Throat Streptococcus pyogenes (PCR) - Final 01/28/24 15:55 Mucosa - Nasopharyngeal SARS-CoV-2, Influenza & RSV (PCR) - Final Radiography Diagnostic Testing: Radiology Impression Chest CTA 01/29/24 17:20 IMPRESSION: Mild bilateral interstitial thickening in the upper lobes with patchy areas of groundglass opacity possibly due to inflammatory disease. 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, appears less ill today and not toxic HEENT normocephalic, head/scalp atraumatic, hearing grossly normal bilaterally and moist oral mucous membranes HEENT Narrative: Mallampati 2, no thrush Resp normal respiratory effort, no retractions, no use of accessory muscles and clear to auscultation bilaterally Auscultation: Negative for rales, rhonchi or wheezes Cardio regular rate, regular rhythm, S1 normal heart sound, S2 normal heart sound, no murmurs, no rub, no gallops and no clicks GI normal to inspection, nondistended, normoactive bowel sounds, soft to palpation and non-tender Extremity no clubbing, cyanosis or edema Extremity Narrative: Pedal pulses are 2+ Neuro oriented x3, moves all extremities and no focal motor deficits Speech: speech normal Psych affect normal Psych Narrative: Interacts appropriately, very pleasant Assessment & Plan Assessment/Plan (1) Hypoxemia: (2) Elevated brain natriuretic peptide (BNP) level: (3) Shortness of breath: (4) Hyponatremia: PLAN: Plan Hypoxia with shortness of breath -CTA of the chest is negative for PE and shows only mild bilateral interstitial thickening in the upper lobes with patchy areas of groundglass opacity as well as a small right pleural effusion with compressive atelectasis in the right lower lobe -Continue Levaquin but discontinue vancomycin with negative MRSA PCR and negative procalcitonin -Strep pneumo and Legionella antigens are unremarkable -COVID/flu/RSV negative -Respiratory viral is unremarkable -COVID PCR is negative -MRSA PCR is negative -Blood cultures are pending -Continue Pep therapy -Procalcitonin is unremarkable -Echocardiogram is pending -Still remains on 2 L supplemental oxygen -Wean as able -Check ambulatory pulse ox prior to discharge -Will redose Lasix 40 mg IV push x 1 dose Elevated BNP -Significance is unclear -Echocardiogram is pending -Redose Lasix 40 mg IV push x 1 dose today Hypokalemia -Potassium 3.3 -Likely related to diuretics -Repeat in a.m. after repletion Hyponatremia -Stable at 131 -Repeat lab in a.m. Generalized weakness -PT/OT consultation is pending Multiple myeloma -Follows with Dr. Venegas -Per patient report no disease found on follow-up PET scan from May -I did discuss the case with Dr. Venegas and there are some chemotherapeutic agents that he is on that could cause pulmonary issues so this is a potential but we need to rule out other etiologies first Anemia -Stable -Continue to monitor History of nonobstructive CAD -Continue home full dose aspirin -Continue modification of risk factors Hypertension -Continue home amlodipine -Continue home ramipril Hyperlipidemia -Continue home Zetia -Continue home niacin Vitamin D deficiency -Continue home cholecalciferol GERD -Continue Prevacid Alcohol abuse -No signs of withdrawal -Continue to monitor -Last drink was on Sunday -Recommend cessation DVT prophylaxis -Continue enoxaparin CODE STATUS Full code Charges/Coding Visit Charges Inpatient E&M: 71713 Subs Hosp L2
[2024-01-30] MEDS: Furosemide 40 MG/4 ML Vial IV ×2 (14:57→18:44)
--- NOTE | 2024-01-30 16:31 | CON.PCM.CA_ITS ---
<Statement entered by Arcadio Banerjee MD - 01/31/24 15:00> Pt seen & evaluated w/BALWINDER. I personally interviewed & exam the pt. I was involved in all aspects of pt's orders, interpretation of results & treatment Assessment & Plan Assessment/Plan (1) Decreased left ventricular systolic function: (2) Abnormal echocardiogram: (3) CAD (coronary artery disease): PLAN: Plan * Patient does not appear to have any acute cardiac symptoms at this time. 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 Once we have received these medical records we will make further recommendations. HPI Consult Data Date of Consult: 01/30/24 HPI Narrative HPI Narrative: MARIO DE LA FUENTE, is a 74 M who presented to the hospital with increased short of breath over the last few days. His oncologist noted that his pulse ox was low and he was sent to the emergency room. He was diagnosed with pneumonia, acute hypoxic respiratory insufficiency. As part of his workup he underwent an echocardiogram which demonstrated an ejection fraction of 40%. [place] is hypokinetic. Mild concentric LVH. No echocardiogram to compare to. He does have a history of hypertension and multiple myeloma. Patient states that he is established with cardiology at [facility]. He states that he recently had an office visit with his kraft digester operator. He thinks that he had a stress test 2 years ago. He thinks he is recently had an echocardiogram. He has not had any chest pain, palpitations, lightheadedness, lower extremity edema. He is short of breath and this was related to his pneumonia. [facility] Medical History (Updated 01/30/24 @ 16:57 by Yris RONQUILLO, PA) CAD (coronary artery disease) Chest pain CPAP (continuous positive airway pressure) dependence Decreased left ventricular systolic function Depression Hypertension Multiple myeloma Myocardial infarct Non-smoker Sleep apnea Home Medications amlodipine 10 mg tablet 10 mg PO DAILY 01/28/24 [History Last Taken 01/28/24 08:00] aspirin 325 mg tablet 325 mg PO QHS 01/28/24 [History Last Taken Unknown] cholecalciferol (vitamin D3) 125 mcg (5,000 unit) tablet (Vitamin D3) 125 mcg PO QHS 01/28/24 [History Last Taken Unknown] ezetimibe 10 mg tablet 10 mg PO DAILY 01/28/24 [History Last Taken Unknown] lansoprazole 30 mg capsule,delayed release (Prevacid) 30 mg PO DAILY 01/28/24 [History Last Taken Unknown] niacin 1,000 mg tablet,extended release 24 hr 2,000 mg PO DAILY 01/28/24 [History Last Taken 01/28/24 08:00] nitroglycerin 0.4 mg sublingual tablet 0.4 mg sublingual UD 01/28/24 [History Last Taken Unknown] ramipril 10 mg capsule 10 mg PO BID 01/28/24 [History Last Taken Unknown] Allergy/AdvReac Type Severity Reaction Status Date / Time No Known Allergies Allergy Verified 01/28/24 15:09 Surgical History (Updated 01/28/24 @ 18:48 by Isamar Myers) History of coronary artery stent placement Social History (Updated 01/28/24 @ 17:[address] Cale Webster, ) Smoking Status: Unknown if ever smoked alcohol intake: current alcohol intake frequency: 3 or more drinks per day ROS Constitutional Constitutional: Denies chills, fatigue, headache(s) or lethargy ENT HEENT: Denies dizziness or vertigo Cardiovascular Cardiovascular: Denies chest pain at rest, chest pain with activity, claudication, irregular heart rhythm, orthopnea, orthostatic symptoms, palpitations or pedal edema Respiratory/Chest Respiratory/Chest: Reports cough and dyspnea on exertion Gastrointestinal Gastrointestinal: Denies abdominal pain, bloating, coffee ground emesis, diarrhea or heartburn Musculoskeletal Musculoskeletal: Denies myalgias or numbness Physical Exam Const alert, oriented x3, no apparent distress and well nourished HEENT normocephalic, head/scalp atraumatic, hearing grossly normal bilaterally and moist oral mucous membranes Resp normal respiratory effort, no retractions, no use of accessory muscles and clear to auscultation bilaterally Auscultation: Negative for rales, rhonchi or wheezes Cardio regular rate, regular rhythm, S1 normal heart sound, S2 normal heart sound, no murmurs, no rub, no gallops and no clicks GI normal to inspection, nondistended, normoactive bowel sounds, soft to palpation and non-tender Extremity no clubbing, cyanosis or edema Extremity Narrative: Pedal pulses are 2+ Neuro oriented x3, moves all extremities and no focal motor deficits Speech: speech normal Psych affect normal Psych Narrative: Interacts appropriately, very pleasant Risk Stratification Risk Stratification Applicable: No Charges/Coding Visit Charges Office Visits / Consults: 49058 IP Consult L3 Objective Data Vital Signs: Vital Signs Temp Pulse Resp BP Pulse Ox O2 Del Method O2 Flow Rate 98.2 F 71 18 113/83 H 95 Nasal Cannula 3 01/30/24 14:59 01/30/24 14:59 01/30/24 14:59 01/30/24 14:59 01/30/24 14:59 01/30/24 15:03 01/30/24 15:03 Oxygen Flow Rate (L/min) 3 Oxygen Delivery Method Nasal Cannula Weight: 197 lb 5.019 oz Body Mass Index (BMI) 30.9 Intake & Output: Intake and Output for Last 24 Hours 01/28/24 01/29/24 01/30/24 23:59 23:59 23:59 Intake Total 150 / 450 750 / 1350 1550 / 1550 Output Total 300 / 800 1650 / 1650 Balance 150 / 150 450 / 550 -100 / -100 Lab / Micro Data 01/30/24 07:03 01/30/24 07:03 Labs: Laboratory Results - last 24 hr 01/29/24 21:50: MRSA (PCR) Negative 01/30/24 07:03: WBC 5.4, RBC 3.46 L, Hgb 11.6 L, Hct 33.8 L, MCV 97.7 H, MCH 3 3.5 H, MCHC 34.3, RDW Std Deviation 51.4 H, RDW Coeff of Cheryle 14.4, Plt Count 263, MPV 9.5, Immature Gran % (Auto) 0.900, Neut % (Auto) 71.0 H, Lymph % (Auto) 4.3 L, [place]oyah % (Auto) 20.3 H, Eos % (Auto) 2.4, Baso % (Auto) 1.1 H, Absolute Neuts (auto) 3.8, Absolute Lymphs (auto) 0.23 L, Nucleated RBC % 0, Sodium 131 L , Potassium 3.3 L, Chloride 99, Carbon Dioxide 24.0, Anion Gap 8, BUN 5 L, Creatinine 0.75, Estim Creat Clear Calc 86.46, Est GFR (MDRD) Af Amer 131, Est GFR (MDRD) Non-Af 108, BUN/Creatinine Ratio 6.7 L, Glucose 105, Calcium 8.2 L, Phosphorus 2.9, Magnesium 2.3, Total Bilirubin 0.40, AST 20, ALT 29, Alkaline Phosphatase 49, Total Protein 5.9 L, Albumin 2.8 L, Globulin 3.1, Albumin/Globulin Ratio 0.9, Procalcitonin < 0.04, TSH 1.94 Micro: Microbiology 01/30/24 09:45 Mucosa - Nasopharyngeal Respiratory Panel (PCR) - Final 01/30/24 09:45 Mucosa - Nasopharyngeal Coronavirus COVID-19 PCR - Final Rhythm Strip Rhythm Strip: Sinus Rhythm Rate: 70 Ectopy: None Cardiology Labs/Tests 01/30/24 07:03: WBC 5.4, RBC 3.46 L, Hgb 11.6 L, Hct 33.8 L, MCV 97.7 H, MCH 33.5 H, MCHC 34.3, Plt Count 263, MPV 9.5, Immature Gran % (Auto) 0.900, Neut % (Auto) 71.0 H, Lymph % (Auto) 4.3 L, [place] % (Auto) 20.3 H, Eos % (Auto) 2.4, Baso % (Auto) 1.1 H, Absolute Neuts (auto) 3.8, Nucleated RBC % 0, Sodium 131 L, Potassium 3.3 L, Chloride 99, Carbon Dioxide 24.0, Anion Gap 8, BUN 5 L, Creatinine 0.75, Est GFR (MDRD) Af Amer 131, Est GFR (MDRD) Non-Af 108, BUN/Creatinine Ratio 6.7 L, Glucose 105, Calcium 8.2 L, Phosphorus 2.9, Magnesium 2.3, Total Bilirubin 0.40 Rhythm: EKG: ECHO: Stress Test: Cardiac Cath: PCI: CT Surgery: Holter monitor: EPS: PPM: CXR: Chest CT Scan: Radiography Diagnostic Testing: Radiology Impression Chest CTA 01/29/24 17:20 IMPRESSION: Mild bilateral interstitial thickening in the upper lobes with patchy areas of groundglass opacity possibly due to inflammatory disease. Tiny right pleural effusion and compressive atelectasis in the right lower lobe No evidence for pulmonary embolus Electronically Signed: Silvestre Michaesl MD at 19:40 EDT , Echocardiogram 01/29/24 20:23 Interpretation Summary The estimated ejection fraction is 40 %. [place] is hypokinetic. Mild concentric left ventricular hypertrophy. Mild (1+) mitral valve insufficiency. Contrast injection was performed. There is no comparison study available. Ordering Physician: Makenzie Garcia Referring Physician: GRETCHEN MATSON Performed By: Amber Gómez RDCS
--- NOTE | 2024-01-30 16:36 | PCM.HOSP.N ---
Hospitalist Note Echo resulted with an EF of 40%. Patient has no recollection of having any heart failure previously. Old echocardiogram records are pending from most recent echo from [facility]. Placed on goal-directed therapy with Coreg 6.25 twice daily, Aldactone 12.5 mg daily and continue home NICK inhibitor. Consultation to cardiology in place. I discussed this with SHIMA Martínez. Also discussed with patient and his .
[2024-01-30] MEDS: Aspirin 325 MG Tablet PO (22:58)
[2024-01-30] MEDS: Cholecalciferol (Vit D3) 125 MCG CAPSULE (5,000 UNITS) PO (22:58)
[2024-01-30] MEDS: Carvedilol 6.25 MG Tablet PO (22:58)
[2024-01-31] VITALS (13 sets, daily range): BP systolic 80–121; BP diastolic 62–81; PULSE 56–96; RESP 16–20; TEMP 36.6–37.3; O2SAT 86–95
[2024-01-31] MEDS: Spironolactone 25 MG Tablet 12.5 MG PO (07:55)
[2024-01-31] MEDS: Ramipril 10 MG Capsule PO (07:56)
[2024-01-31] MEDS: Pantoprazole Sodium 40 MG Tablet PO (07:56)
[2024-01-31] MEDS: Enoxaparin 40 MG/0.4 ML Syringe SC (07:56)
[2024-01-31] MEDS: Carvedilol 6.25 MG Tablet PO ×2 (07:56→21:38)
[2024-01-31] MEDS: Ezetimibe 10 MG Tablet PO (07:56)
[2024-01-31 08:33] LABS: Anion Gap 8 (5-15); BUN 7 mg/dL (7-18); BUN/Creat Ratio 9.5 RATIO (10-20); Calcium,Total 8.1 mg/dL (8.5-10.1); Chloride 97 mmol/L (98-107); Creatinine, Serum 0.74 mg/dL (0.70-1.30); EST Glomerular Filtration Rate 110 mL/min (>60); Est Glom Filt Rate - Afr Amer 134 mL/min (>60); Estimated Creatinine Clearance 86.46 ml/min; Glucose 105 mg/dL (74-106); Magnesium 2.2 mg/dL (1.6-2.6); Potassium 3.5 mmol/L (3.5-5.1); Sodium Level 130 mmol/L (136-145)
--- NOTE | 2024-01-31 09:04 | PN.CARD_ITS ---
<Statement entered by Arcadio Banerjee MD - 01/31/24 14:56> Pt seen & evaluated w/BALWINDER. I personally interviewed & exam the pt. I was involved in all aspects of pt's orders, interpretation of results & treatment Subjective Subjective Patient seen and examined today. No chest pain or shortness of breath overnight. He states he is feeling better than when he came into the hospital. Objective Data Vital Signs: Vital Signs Temp Pulse Resp BP Pulse Ox O2 Del Method O2 Flow Rate 98 F 56 L 16 109/72 95 Nasal Cannula 2 01/31/24 08:39 01/31/24 08:39 01/31/24 08:39 01/31/24 08:39 01/31/24 08:39 01/31/24 08:39 01/31/24 08:39 Oxygen Flow Rate (L/min) 2 Oxygen Delivery Method Nasal Cannula Weight: 197 lb 5.019 oz Body Mass Index (BMI) 30.9 Intake & Output: Intake and Output for Last 24 Hours 01/29/24 01/30/24 01/31/24 23:59 23:59 23:59 Intake Total 750 / 1350 1550 / 1550 Output Total 300 / 800 3250 / 3250 Balance 450 / 550 -1700 / -1700 Lab / Micro Data 01/30/24 07:03 01/31/24 06:31 Labs: Laboratory Results - last 24 hr 01/30/24 07:03: Procalcitonin < 0.04 01/31/24 06:31: Sodium 130 L, Potassium 3.5, Chloride 97 L, Carbon Dioxide 25.0, Anion Gap 8, BUN 7, Creatinine 0.74, Estim Creat Clear Calc 86.46, Est GFR (MDRD) Af Amer 134, Est GFR (MDRD) Non-Af 110, BUN/Creatinine Ratio 9.5 L, Glucose 105, Calcium 8.1 L, Phosphorus 3.0, Magnesium 2.2 Micro: Microbiology 01/30/24 09:45 Mucosa - Nasopharyngeal Respiratory Panel (PCR) - Final 01/30/24 09:45 Mucosa - Nasopharyngeal Coronavirus COVID-19 PCR - Final Rhythm Strip Rhythm Strip: Sinus Rhythm Rate: 70 Ectopy: None Cardiology Labs/Tests 01/31/24 06:31: Sodium 130 L, Potassium 3.5, Chloride 97 L, Carbon Dioxide 25.0, Anion Gap 8, BUN 7, Creatinine 0.74, Est GFR (MDRD) Af Amer 134, Est GFR (MDRD) Non-Af 110, BUN/Creatinine Ratio 9.5 L, Glucose 105, Calcium 8.1 L, Phosphorus 3.0, Magnesium 2.2 Radiography Diagnostic Testing: Radiology Impression Echocardiogram 01/29/24 20:23 Interpretation Summary The estimated ejection fraction is 40 %. [place] is hypokinetic. Mild concentric left ventricular hypertrophy. Mild (1+) mitral valve insufficiency. Contrast injection was performed. There is no comparison study available. Ordering Physician: Makenzie Garcia Referring Physician: GRETCHEN MATSON Performed By: Amber Gómez RDCS Physical Exam Const alert, oriented x3, no apparent distress and well nourished HEENT normocephalic, head/scalp atraumatic, hearing grossly normal bilaterally and moist oral mucous membranes Resp normal respiratory effort, no retractions, no use of accessory muscles and clear to auscultation bilaterally Auscultation: Negative for rales, rhonchi or wheezes Cardio regular rate, regular rhythm, S1 normal heart sound, S2 normal heart sound, no murmurs, no rub, no gallops and no clicks GI normal to inspection, nondistended, normoactive bowel sounds, soft to palpation and non-tender Extremity no clubbing, cyanosis or edema Extremity Narrative: Pedal pulses are 2+ Neuro oriented x3, moves all extremities and no focal motor deficits Speech: speech normal Psych affect normal Psych Narrative: Interacts appropriately, very pleasant Assessment & Plan Assessment/Plan (1) Decreased left ventricular systolic function: (2) Abnormal echocardiogram: (3) CAD (coronary artery disease): PLAN: Plan * Patient does not appear to have any acute cardiac symptoms at this time. 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 Once we have received these medical records we will make further recommendations. Charges/Coding Visit Charges Inpatient E&M: 79698 Subs Hosp L2
[2024-01-31] MEDS: 0.9% Saline Lock 10 ML Syringe IV ×3 (09:30→21:39)
[2024-01-31] MEDS: Furosemide 40 MG/4 ML Vial IV ×2 (09:30→17:05)
[2024-01-31] MEDS: levoFLOXacin IV 750 MG/150 ML BAG 100 MG IV (09:30)
--- NOTE | 2024-01-31 15:48 | CON.PCM.CC_ITS ---
Assessment & Plan Assessment/Plan (1) Multiple myeloma: (2) Hypoxemia: PLAN: Plan RECOMMENDATIONS: 1. Encourage incentive spirometer and Acapella as tolerated 2. Walking oximetry prior to discharge. Supplemental oxygen as indicated 3. Outpatient complete PFT and repeat PSG 4. Cardiac optimization with potential right heart cath as outpatient IMPRESSIONS: 1. Hypoxia Unclear etiology. Patient does have decreased EF on echocardiogram, which could be contributing. Clinical suspicion for an element of diastolic dys function secondary to untreated STEVE. Patient did have some groundglass opacities noted on CT images of PET scan previously. Patient does not have significant calcification of lymph nodes suggestive of silicosis, but this would be concerning from an occupational history standpoint. Patient does have multiple myeloma, but no other concomitant autoimmune diseases complicate pulmonary findings/pulmonary hypertension. Clinical suspicion is for a multifactorial pulmonary hypertension. Patient may need a right heart catheterization as an outpatient to quantify and clarify pressures. Did stresse d to the patient the importance of using an incentive spirometer. Patient will need an outpatient complete pulmonary function test. Walking oximetry as an outpatient could be obtained in 2 to 4 weeks to see if oxygen can be discontinued. 2. Untreated STEVE Original sleep study is not available for review. Given patient's marginal oxygen saturations, protracted hypoxemia at home would be a concern. Patient likely requires a formal PSG repeat titration/split-night for optimization. This could be leading to type II or type III pulmonary hypertension. 3. CAD/advanced age/multiple myeloma/hypertension Complicates care, management, recovery and prognosis. Patient following regularly with Dr. Venegas. HPI Consult Data Date of Consult: 01/31/24 HPI Narrative HPI Narrative: MARIO DE LA FUENTE is a 74 M, with past medical history listed below, who presented to [facility] on 01/28/2024 secondary to worsening shortness of breath and hypoxia. Patient reportedly had presented to Dr. Venegas and was found to be hypoxic despite not using supplemental oxygen at baseline. Patient had reported a minor cough that has been worse over the last 2 to 3 days. Patient denied any lower extremity edema, but does wear compression stockings at baseline out of comfort. Patient not reported any recent syncopal episodes. Patient does have a history of sleep apnea, but is noncompliant with therapy. In the ER, patient was afebrile, normotensive and saturating 94% on room air. Patient did have some desaturation with minimal movement and had to be placed on 3 L nasal cannula. Laboratory workup showed white blood cell count of 7, hemoglobin of 12.3 and platelets of 277. Differential did show a significant proportion of monocytes at 20.4. Chemistries showed a sodium of 128, chloride of 97 and creatinine of 0.88. Blood sugar was within normal limits and BNP was slightly elevated at 119.9. Chest x-ray showed bilateral lower lobe infiltrates. Patient was placed on supplemental oxygen, IV Levaquin and admitted to the hospital for further evaluation. Since being admitted, patient far workup has been negative. Patient also had negative antigens. A CTA of the chest was obtained showing no significant PE. Patient also had pancultures and was given IV Lasix. Patient's EF did show 40% with mild concentric LVH and a hypokinetic apex. Pulmonary artery pressures were not able to be obtained. The CTA of the chest did show significant motion artifact, but no PE was noted. Patient did not have any significant mediastinal lymphadenopathy. There was some possible groundglass opacity with minimal pleural effusions. On my evaluation, patient states he felt significantly better compared to previous. Patient had been weaned down to room air at rest and was saturating approximately 89%. Discussed with patient's . 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 Patient states that he does wear a mask intermittently, but admits that this is not routine. Patient has never seen a pulmonary physician or completed PFTs previously. Patient states he has had a CT before, but nobody has ever expressed concerns over pulmonary fibrosis. Patient does have a history of sleep apnea, but has not used a CPAP in years. Patient reports intermittent cigar use, regular alcohol use and no illicit drugs. Review of systems otherwise negative from a constitutional, HEENT, respiratory, cardiovascular, GI, genitourinary, musculoskeletal, skin, neurologic, psychiatric and hematologic system unless stated above. [facility] Medical History CAD (coronary artery disease) Chest pain CPAP (continuous positive airway pressure) dependence Decreased left ventricular systolic function Depression Hypertension Multiple myeloma Myocardial infarct Non-smoker Sleep apnea Home Medications amlodipine 10 mg tablet 10 mg PO DAILY 01/28/24 [History Last Taken 01/28/24 08:00] aspirin 325 mg tablet 325 mg PO QHS 01/28/24 [History Last Taken Unknown] cholecalciferol (vitamin D3) 125 mcg (5,000 unit) tablet (Vitamin D3) 125 mcg PO QHS 01/28/24 [History Last Taken Unknown] ezetimibe 10 mg tablet 10 mg PO DAILY 01/28/24 [History Last Taken Unknown] lansoprazole 30 mg capsule,delayed release (Prevacid) 30 mg PO DAILY 01/28/24 [History Last Taken Unknown] niacin 1,000 mg tablet,extended release 24 hr 2,000 mg PO DAILY 01/28/24 [H istory Last Taken 01/28/24 08:00] nitroglycerin 0.4 mg sublingual tablet 0.4 mg sublingual UD 01/28/24 [History Last Taken Unknown] ramipril 10 mg capsule 10 mg PO BID 01/28/24 [History Last Taken Unknown] Allergy/AdvReac Type Severity Reaction Status Date / Time No Known Allergies Allergy Verified 01/28/24 15:09 Surgical History History of coronary artery stent placement Social History Smoking Status: Unknown if ever smoked alcohol intake: current alcohol intake frequency: 3 or more drinks per day ROS ROS Narrative See HPI Physical Exam Const alert, oriented x3, no apparent distress and well nourished Constitutional Narrative: Sitting in a chair at the bedside. No conversational dyspnea noted. Intermittent nonproductive cough. HEENT normocephalic, head/scalp atraumatic, hearing grossly normal bilaterally and moist oral mucous membranes HEENT Narrative: Mallampati 2 Eyes PERRL, EOMs intact bilaterally and conjunctivae normal Eyes Narrative: Glasses in place Neck full ROM and no lymphadenopathy Chest inspection of chest normal Chest Narrative: Patient able to achieve 1000 cc on incentive spirometer. Oxygenation improved from 88% on room air at rest to 95% on room air at rest. Resp normal respiratory effort, no retractions, no use of accessory muscles and clear to auscultation bilaterally Auscultation: Negative for rales, rhonchi or wheezes Cardio regular rate, regular rhythm, S1 normal heart sound, S2 normal heart sound, no murmurs, no rub, no gallops and no clicks GI normal to inspection, nondistended, normoactive bowel sounds, soft to palpation and non-tender Extremity no clubbing, cyanosis or edema Extremity Narrative: ESTEVAN hose in place Skin no rashes or lesions noted Neuro oriented x3, moves all extremities and no focal motor deficits Speech: speech normal Psych cooperative and affect normal Medical Records Data Attestation: I reviewed the patient's medical records Medical records narrative: Patient did have a negative PET scan in May 2023. Review of the CT images on this study did show some areas of groundglass opacities and prominent pulmonary vasculature. Patient does not have any positive cultures in the past Lab / Micro Data Attestation: I reviewed the patient's lab results. 01/30/24 07:03 01/31/24 06:31 Labs: Laboratory Results - last 24 hr 01/31/24 06:31: Sodium 130 L, Potassium 3.5, Chloride 97 L, Carbon Dioxide 25.0, Anion Gap 8, BUN 7, Creatinine 0.74, Estim Creat Clear Calc 86.46, Est GFR (MDRD) Af Amer 134, Est GFR (MDRD) Non-Af 110, BUN/Creatinine Ratio 9.5 L, Glucose 105, Calcium 8.1 L, Phosphorus 3.0, Magnesium 2.2 Micro: Microbiology 01/30/24 09:45 Mucosa - Nasopharyngeal Respiratory Panel (PCR) - Final Rhythm Strip Rhythm Strip: Sinus Rhythm Rate: 70 Ectopy: None Charges/Coding Visit Charges Inpatient E&M: 37100 Init Hosp L3
--- NOTE | 2024-01-31 16:36 | PN.HOSP_ITS ---
Reason for Visit Reason for Visit: Shortness of breath Subjective Subjective Patient states he does feel better overall. He seems to have more energy. His agrees that he seems to be ambulating with less weakness however he still is requiring oxygen. We did receive previous echocardiogram which showed a normal EF. Objective Data Objective Data Vital Signs: Vital Signs Temp Pulse Resp BP Pulse Ox O2 Del Method O2 Flow Rate 98.1 F 61 16 115/81 H 88 Room Air 2 01/31/24 16:34 01/31/24 16:34 01/31/24 16:34 01/31/24 16:34 01/31/24 16:34 01/31/24 16:34 01/31/24 16:34 Oxygen Flow Rate (L/min) [At 2 REST with Oxygen] Oxygen Flow Rate (L/min) [ 2 AMBULATING with Oxygen #1] Oxygen Flow Rate (L/min) 2 Oxygen Delivery Method Room Air Weight: 89.5 kg Body Mass Index (BMI) 30.9 Intake & Output: Intake and Output for Last 24 Hours 01/29/24 01/30/24 01/31/24 23:59 23:59 23:59 Intake Total 750 / 1350 1550 / 1550 500 / 500 Output Total 300 / 800 3250 / 3250 Balance 450 / 550 -1700 / -1700 500 / 500 Lab / Micro Data 01/30/24 07:03 01/31/24 06:31 Labs: Laboratory Results - last 24 hr 01/31/24 06:31: Sodium 130 L, Potassium 3.5, Chloride 97 L, Carbon Dioxide 25.0, Anion Gap 8, BUN 7, Creatinine 0.74, Estim Creat Clear Calc 86.46, Est GFR (MDRD) Af Amer 134, Est GFR (MDRD) Non-Af 110, BUN/Creatinine Ratio 9.5 L, Glucose 105, Calcium 8.1 L, Phosphorus 3.0, Magnesium 2.2 Micro: Microbiology 01/30/24 09:45 Mucosa - Nasopharyngeal Respiratory Panel (PCR) - Final 01/30/24 09:45 Mucosa - Nasopharyngeal Coronavirus COVID-19 PCR - Final 01/28/24 21:05 Urine, Random Legionella Antigen - Final 01/28/24 21:05 Urine, Random Streptococcus pneumoniae Antigen (M - Final 01/28/24 19:55 Mucosa - Throat Streptococcus pyogenes (PCR) - Final 01/28/24 15:55 Mucosa - Nasopharyngeal SARS-CoV-2, Influenza & RSV (PCR) - Final Rhythm Strip Rhythm Strip: Sinus Rhythm Rate: 70 Ectopy: None Physical Exam Const alert, oriented x3, no apparent distress and well nourished; Negative for average body habitus or healthy appearing Constitutional Narrative: Obese, older, white male, sitting up at the bedside, watching television, at bedside, 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, appears well and nontoxic HEENT normocephalic, head/scalp atraumatic, hearing grossly normal bilaterally and moist oral mucous membranes HEENT Narrative: Mallampati 3, no thrush Resp normal respiratory effort, no retractions, no use of accessory muscles and clear to auscultation bilaterally Auscultation: Negative for rales, rhonchi or wheezes Cardio regular rate, regular rhythm, S1 normal heart sound, S2 normal heart sound, no murmurs, no rub, no gallops and no clicks GI normal to inspection, nondistended, normoactive bowel sounds, soft to palpation, non-tender and hepatosplenomegaly Extremity no clubbing, cyanosis or edema Neuro oriented x3, moves all extremities and no focal motor deficits Speech: speech normal Psych affect normal Psych Narrative: Interacts appropriately, very pleasant Assessment & Plan Assessment/Plan (1) Hypoxemia: (2) Elevated brain natriuretic peptide (BNP) level: (3) Shortness of breath: (4) Hyponatremia: PLAN: Plan Hypoxia with shortness of breath -CTA of the chest is negative for PE and shows only mild bilateral interstitial thickening in the upper lobes with patchy areas of groundglass opacity as well as a small right pleural effusion with compressive atelectasis in the right lower lobe -Will stop antibiotics and watch off -Blood cultures are pending remain pending however will discontinue antibiotics as with a normal procalcitonin I think that his likelihood of being infected is low at this point given workup thus far -Continue Pep therapy -Echocardiogram showed a newly depressed EF at 40% with previous echocardiograms that we have received thus far being normal with an EF of 60 to 65% -Still remains on 2 L supplemental oxygen -Wean as able -Check ambulatory pulse ox prior to discharge -Continue Lasix as ordered Elevated BNP -Significance is unclear -Echocardiogram with EF of 40% -Continue Lasix -Cardiology is following and awaiting further records Hypokalemia -Resolved Hyponatremia -Stable -Repeat lab in a.m. Generalized weakness -PT/OT is following Multiple myeloma -Follows with Dr. Venegas -Per patient report no disease found on follow-up PET scan from May -I did discuss the case with Dr. Venegas and there are some chemotherapeutic agents that he is on that could cause pulmonary issues so this is a potential but we need to rule out other etiologies first Anemia -Stable -Continue to monitor History of nonobstructive CAD -Continue home full dose aspirin -Continue modification of risk factors Hypertension -Continue home amlodipine -Continue home ramipril Hyperlipidemia -Continue home Zetia -Continue home niacin Vitamin D deficiency -Continue home cholecalciferol GERD -Continue Prevacid Alcohol abuse -No signs of withdrawal -Continue to monitor -Last drink was on Sunday -Recommend cessation DVT prophylaxis -Continue enoxaparin CODE STATUS Full code Charges/Coding Visit Charges Inpatient E&M: 01982 Subs Hosp L2
[2024-01-31] MEDS: Cholecalciferol (Vit D3) 125 MCG CAPSULE (5,000 UNITS) PO (21:38)
[2024-01-31] MEDS: Aspirin 325 MG Tablet PO (21:39)
[2024-02-01 02:40] VITALS: BP 110/73; PULSE 60; RESP 20; TEMP 36.9; O2SAT 93
[2024-02-01 06:28] VITALS: PULSE 60; O2SAT 93
[2024-02-01 06:51] VITALS: O2SAT 92
[2024-02-01 07:21] LABS: Absolute Lymphocyte Count 0.27 X10^3/uL (0.83-4.51); Absolute Neutrophil Count 3.2 X10^3/uL (2.0-7.7); Basophil# 0.08 X10^3/uL; Basophil% 1.8 % (0-1); Eosinophil# 0.16 X10^3/uL; Eosinophils% 3.5 % (0-5); Hematocrit 32.7 % (40-54); Hemoglobin 11.5 g/dL (13.0-16.5); Lymphocyte # 0.27 X10^3/ul (0.83-4.51); Lymphocyte % 5.9 % (19-41); Mean Corp Hgb Conc 35.2 g/dL (32-36); Mean Corpuscular Hgb 33.9 pg (27.0-32.0); Mean Corpuscular Volume 96.5 fL (80-94); Mean Platelet Vol. 9.1 fl (6.2-12.0); Monocyte# 0.86 X10^3/uL; Monocyte% 18.9 % (0-10); NRBC Flagged by Analyzer 0 % (0-5); Neutrophil # 3.16 X10^3/uL (2.7-7.7); Neutrophil % 69.2 % (47-70); POSITIVE DIFFERENTIAL YES; Platelet Count 265 K/mm3 (150-450); RBC Distribution Width CV 14.3 % (11.6-14.6); Red Blood Count 3.39 M/mm3 (4.6-6.2); White Blood Count 4.6 K/mm3 (4.4-11.0)
--- NOTE | 2024-02-01 07:36 | PCA ---
Medical Records obtained from [facility]
[2024-02-01 07:44] LABS: Anion Gap 8 (5-15); BUN 7 mg/dL (7-18); BUN/Creat Ratio 9.3 RATIO (10-20); Calcium,Total 8.1 mg/dL (8.5-10.1); Chloride 96 mmol/L (98-107); Creatinine, Serum 0.76 mg/dL (0.70-1.30); EST Glomerular Filtration Rate 107 mL/min (>60); Est Glom Filt Rate - Afr Amer 130 mL/min (>60); Estimated Creatinine Clearance 86.46 ml/min; Glucose 103 mg/dL (74-106); Potassium 3.4 mmol/L (3.5-5.1); Sodium Level 128 mmol/L (136-145)
[2024-02-01] MEDS: Ezetimibe 10 MG Tablet PO (08:20)
[2024-02-01] MEDS: Niacin SA 500 MG Tablet 1000 MG PO (08:20)
[2024-02-01] MEDS: Pantoprazole Sodium 40 MG Tablet PO (08:20)
[2024-02-01] MEDS: Carvedilol 6.25 MG Tablet PO (08:20)
[2024-02-01] MEDS: Spironolactone 25 MG Tablet 12.5 MG PO (08:21)
[2024-02-01] MEDS: Enoxaparin 40 MG/0.4 ML Syringe SC (08:21)
[2024-02-01 08:24] VITALS: O2SAT 90; O2SAT 92; O2SAT 94
[2024-02-01 08:43] VITALS: BP 125/74; PULSE 62; RESP 16; TEMP 36.8; O2SAT 92
--- NOTE | 2024-02-01 09:50 | PCM.PN.INT ---
Assessment & Plan Assessment/Plan (1) Multiple myeloma: (2) Hypoxemia: PLAN: Plan RECOMMENDATIONS: 1. Encourage incentive spirometer and Acapella as tolerated 2. Patient advised to monitor oxygen saturations at home 3. Outpatient complete PFT and repeat PSG 4. Cardiac optimization with potential right heart cath as outpatient IMPRESSIONS: 1. Hypoxia Unclear etiology. Patient does have decreased EF on echocardiogram, which could be contributing. Clinical suspicion for an element of diastolic dysfunction secondary to untreated STEVE. Patient did have some groundglass opacities noted on CT images of PET scan previously. Patient does not have significant calcification of lymph nodes suggestive of silicosis, but this would be concerning from an occupational history standpoint. Patient does have multiple myeloma, but no other concomitant autoimmune diseases complicate pulmonary findings/pulmonary hypertension. Clinical suspicion is for a multifactorial pulmonary hypertension. Patient may need a right heart catheterization as an outpatient to quantify and clarify pressures. Patient likely can be discharged from a pulmonary perspective. Patient will need a repeat split study and PFT as an outpatient. Stressed to the patient that increased salt load could lead to hypoxia and saturation should be monitored at home. Patient voiced understanding. Patient obviously had an element of atelectasis given improvement following incentive spirometer use. Patient was advised to continue this until he is back to normal activity. 2. Untreated STEVE Original sleep study is not available for review. Given patient's marginal oxygen saturations, protracted hypoxemia at home would be a concern. Patient likely requires a formal PSG repeat titration/split-night for optimization. This could be leading to type II or type III pulmonary hypertension. 3. CAD/advanced age/multiple myeloma/hypertension Complicates care, management, recovery and prognosis. Patient following regularly with Dr. Venegas. Subjective Subjective Patient did well overnight. Patient states he has been using his incentive spirometer more often. Patient states he was able to have a walking oximetry this morning and did not require supplemental oxygen. Patient still has periodic coughing. Patient does reportedly really likes salt per his Objective Data Objective Data Vital Signs: Vital Signs Temp Pulse Resp BP Pulse Ox O2 Del Method O2 Flow Rate 36.8 C 62 16 125/74 H 92 Room Air 2 02/01/24 08:43 02/01/24 08:43 02/01/24 08:43 02/01/24 08:43 02/01/24 08:43 02/01/24 08:43 02/01/24 08:24 Oxygen Flow Rate (L/min) [At 2 REST with Oxygen] Oxygen Flow Rate (L/min) [ 2 AMBULATING with Oxygen #1] Oxygen Flow Rate (L/min) 2 Oxygen Delivery Method Room Air Weight: 89.5 kg Body Mass Index (BMI) 30.9 Intake & Output: Intake and Output for Last 24 Hours 01/30/24 01/31/24 02/01/24 23:59 23:59 23:59 Intake Total 1550 / 1550 1000 / 1800 800 / 800 Output Total 3250 / 3250 Balance -1700 / -1700 1000 / 1800 800 / 800 Lab / Micro Data Attestation: I reviewed the patient's lab results. 02/01/24 07:00 02/01/24 07:00 Labs: Laboratory Results - last 24 hr 02/01/24 07:00: WBC 4.6, RBC 3.39 L, Hgb 11.5 L, Hct 32.7 L, MCV 96.5 H, MCH 33.9 H, MCHC 35.2, RDW Std Deviation 51.0 H, RDW Coeff of Cheryle 14.3, Plt Count 265, MPV 9.1, Immature Gran % (Auto) 0.700, Neut % (Auto) 69.2, Lymph % (Auto) 5.9 L, [place] % (Auto) 18.9 H, Eos % (Auto) 3.5, Baso % (Auto) 1.8 H, Absolute Neuts (auto) 3.2, Absolute Lymphs (auto) 0.27 L, Nucleated RBC % 0, Sodium 128 L, Potassium 3.4 L, Chloride 96 L, Carbon Dioxide 24.0, Anion Gap 8, BUN 7, Creatinine 0.76, Estim Creat Clear Calc 86.46, Est GFR (MDRD) Af Amer 130, Est GFR (MDRD) Non-Af 107, BUN/Creatinine Ratio 9.3 L, Glucose 103, Calcium 8.1 L, Magnesium 2.0 Micro: Microbiology 01/30/24 09:45 Mucosa - Nasopharyngeal Respiratory Panel (PCR) - Final 01/30/24 09:45 Mucosa - Nasopharyngeal Coronavirus COVID-19 PCR - Final 01/28/24 21:05 Urine, Random Legionella Antigen - Final 01/28/24 21:05 Urine, Random Streptococcus pneumoniae Antigen (M - Final 01/28/24 19:55 Mucosa - Throat Streptococcus pyogenes (PCR) - Final 01/28/24 15:55 Mucosa - Nasopharyngeal SARS-CoV-2, Influenza & RSV (PCR) - Final Rhythm Strip Rhythm Strip: Sinus Rhythm Rate: 60 Ectopy: None Physical Exam Const alert, oriented x3, no apparent distress and well nourished Constitutional Narrative: Sitting in a chair at the bedside. No conversational dyspnea noted. Intermittent nonproductive cough. HEENT normocephalic, head/scalp atraumatic, hearing grossly normal bilaterally and moist oral mucous membranes Eyes PERRL, EOMs intact bilaterally and conjunctivae normal Eyes Narrative: Glasses in place Neck full ROM and no lymphadenopathy Chest inspection of chest normal Chest Narrative: Patient able to achieve 1500 cc on incentive spirometer. Oxygenation noted to be 92% at rest during my evaluation Resp normal respiratory effort, no retractions, no use of accessory muscles and clear to auscultation bilaterally Auscultation: Negative for rales, rhonchi or wheezes Cardio regular rate, regular rhythm, S1 normal heart sound, S2 normal heart sound, no murmurs, no rub, no gallops and no clicks GI normal to inspection, nondistended, normoactive bowel sounds, soft to palpation and non-tender Extremity no clubbing, cyanosis or edema Extremity Narrative: ESTEVAN hose in place Skin no rashes or lesions noted Neuro oriented x3, moves all extremities and no focal motor deficits Speech: speech normal Psych cooperative and affect normal Charges/Coding Visit Charges Inpatient E&M: 50024 Subs Hosp L2
[2024-02-01 11:30] VITALS: BP 134/74; PULSE 69; RESP 16; TEMP 36.6; O2SAT 93
--- NOTE | 2024-02-01 13:43 | DS.PCM_ITS ---
Providers Date of Admission: 01/28/24 Date of Discharge: 02/01/24 Primary Care Physician: Dr. Gonzalez Easton MD Consultations 01/30/24 15:32 Consult: Cardiology Routine Consulting Provider: Arcadio Banerjee Reason for Consult: cardiomyopathy EMERGENT Consult: No Notified: Yes Date Notified: 01/30/24 Time Notified: 15:32 Method of Notification: Verbal 01/31/24 13:36 Consult: Environmental Maintenance Worker / Pulmonary Medicine Routine Consulting Provider: Intensivists/Pulmonary Med Reason for Consult: hypoxia EMERGENT Consult: No Notified: Yes Date Notified: 01/31/24 Time Notified: 13:37 Method of Notification: Verbal Reason For Visit: PNEUMONIA Diagnosis Discharge Diagnosis (1) Multiple myeloma: Status: Acute Code(s): C90.00 - Multiple myeloma not having achieved remission (2) Hypoxemia: Status: Acute Code(s): R09.02 - Hypoxemia Medications at Discharge Home Medications aspirin 325 mg tablet 325 mg PO QHS 01/28/24 cholecalciferol (vitamin D3) 125 mcg (5,000 unit) tablet (Vitamin D3) 125 mcg PO QHS 01/28/24 ezetimibe 10 mg tablet 10 mg PO DAILY 01/28/24 lansoprazole 30 mg capsule,delayed release (Prevacid) 30 mg PO DAILY 01/28/24 niacin 1,000 mg tablet,extended release 24 hr 2,000 mg PO DAILY 01/28/24 nitroglycerin 0.4 mg sublingual tablet 0.4 mg sublingual UD 01/28/24 ramipril 10 mg capsule 10 mg PO BID 01/28/24 carvedilol 3.125 mg tablet (Coreg) 3.125 mg PO BID #60 tabs 02/01/24 furosemide 40 mg tablet (Lasix) 40 mg PO DAILY #30 tabs 02/01/24 spironolactone 25 mg tablet 12.5 mg (1/2 x 25 mg) PO DAILY #30 tabs 02/01/24 Hospital Course Procedures 2-D Echocardiogram Summary of Care Provided Minutes Spent on Discharge: 36 Hospital Course: Mr. Godinez is a 74-year-old white male who presented to the emergency department at [facility] on 01/28/2024 with shortness of breath. He had been ongoing for several days prior to admission. He had a history of myeloma and is following with Dr. Venegas who noted that he was hypoxic in his office so he sent him to the emergency department. Vital signs on presentation showed a temperature of 36.8, heart rate 71, respiratory was 18 and oxygen saturation was 94% on room air with a blood pressure 129/78. His CBC was unremarkable other than a very mild left shift with a 70.7% neutrophilia and a white count of 7. His chemistry panel showed hyponatremia with a sodium of 128 and an unknown baseline. His BNP was mildly elevated at 119.8. Troponin was normal. COVID/influenza/RSV was unremarkable. He complains of some pharyngitis so rapid strep was performed and unremarkable. Strep pneumo and Legionella antigens were negative. Chest x-ray was suggestive of bilateral lower lobe pneumonia, however, a CTA of his chest was done due to an elevated D-dimer and only showed mild bilateral interstitial thickening of the upper lobes with patchy areas of groundglass opacity possibly due to inflammation as well as a tiny right-sided pleural effusion with compressive atelectasis in the right lower lobe and no evidence of PE.. He was initially admitted to the medical floor and placed on Levaquin and Pep therapy. With his mildly elevated BNP I got an echocardiogram which showed an EF of 40% and a hypokinetic apex along with mild concentric LVH and 1+ mitral valve insufficiency. We were able to obtain records from [place] where he sees a primary gambling floor supervisor and his EF has dropped from 60 to 65% to 40% during this time period. I placed him on goal- directed therapy with Coreg 3.125 mg twice daily, low-dose Aldactone at 12.5 mg daily and he continued his home ramipril. Cardiology was consulted. They felt that any workup that needed to be performed could be done so as an outpatient. The new hypokinesis at the apex was not new. Cardiology recommended outpatient follow-up with his primary gambling floor supervisor for any further workup as he was not having any symptoms other than some shortness of breath and he is clinically improved with diuretics. We initially left him on antibiotics until we could further rule out any bacterial infection. He was not able to produce a sputum culture as he is not producing any, his respiratory viral panel was negative, PCR COVID was negative and blood cultures x 2 were negative. Once his blood cultures resulted negative I stopped antibiotics and monitor him clinically for 24 hours. His oxygenation and energy level did improve with diuretics. Home O2 eval was done prior to discharge and he was 92 to 94% on room air at rest and 90% with exertion while ambulating around the entire unit and showed no significant signs of shortness of breath. I discharged him on carvedilol 3.125 mg p.o. twice daily, Lasix 40 mg daily and Aldactone 12.5 mg daily. We also continued his home ramipril so he is currently on goal-directed therapy. I have encouraged him to follow-up with his primary gambling floor supervisor as soon as they can get him in to be seen and I discussed the case with Dr. Venegas from oncology so he would know about his drop in ejection fraction. The patient was able to be d ischarged home in stable condition on 02/01/2024. I have asked him to follow-up with his primary care physician within the next week as well as calling them and asking for a basic metabolic profile to be done in the next 3 to 5 days to reassess his renal function and electrolytes. He does have chronic hyponatremia and his sodium levels run between 128 and 134 at baseline. Discharge diagnoses: Hypoxia-resolved Shortness of breath-resolved Generalized weakness-resolved Cardiomyopathy with LV dysfunction Acute exacerbation of HFrEF-new Hypokalemia-replaced Chronic hyponatremia-stable Multiple myeloma Chronic anemia History of CAD Hypertension Hyperlipidemia Vitamin D deficiency GERD History of alcohol abuse Physical Exam Narrative Patient states his breathing feels much better. His agrees. He still has intermittent cough but she states that is a chronic issue for him and not new. He has no production with his cough of sputum. He states his weakness is much improved and he feels ready to go home. Const alert, oriented x3, no apparent distress, no limitations and well nourished; Negative for average body habitus or healthy appearing Constitutional Narrative: Obese, older, white male, sitting up in a chair at the bedside, is at the bedside, patient appears well, nontoxic General Appearance: cooperative, comfortable, well kempt and well developed Orientation / Consciousness: awake, oriented to person, oriented to place and oriented to time Exam Limitations: no limitations Nutritional Appearance: obese HEENT normocephalic, head/scalp atraumatic, hearing grossly normal bilaterally and moist oral mucous membranes HEENT Narrative: Mallampati 3, no thrush Eyes PERRL, EOMs intact bilaterally and conjunctivae normal Eyes Narrative: No scleral icterus Neck no lymphadenopathy and supple Neck Narrative: trachea midline, no thyroid enlargement Resp normal respiratory effort, no retractions, no use of accessory muscles and clear to auscultation bilaterally Auscultation: Negative for rales, rhonchi or wheezes Cardio regular rate, regular rhythm, S1 normal heart sound, S2 normal heart sound, no murmurs, no rub, no gallops and no clicks GI normal to inspection, nondistended, normoactive bowel sounds, soft to palpation and non-tender Extremity normal to inspection and no clubbing, cyanosis or edema Extremity Narrative: Pedal pulses are 2+ Skin no wounds, skin turgor normal and no jaundice Neuro oriented x3, CN's II-XII intact bilaterally, moves all extremities and no focal motor deficits Speech: speech normal Psych affect normal Psych Narrative: Interacts appropriately, very pleasant Weight / BMI Weight Weight: 89.5 kg Body Mass Index (BMI) 30.9 ABG / Lab / Microbiology Data 02/01/24 07:00 02/01/24 07:00 Laboratory: Laboratory Results - last 24 hr 02/01/24 07:00: WBC 4.6, RBC 3.39 L, Hgb 11.5 L, Hct 32.7 L, MCV 96.5 H, MCH 33.9 H, MCHC 35.2, RDW Std Deviation 51.0 H, RDW Coeff of Cheryle 14.3, Plt Count 265, MPV 9.1, Immature Gran % (Auto) 0.700, Neut % (Auto) 69.2, Lymph % (Auto) 5.9 L, [place] % (Auto) 18.9 H, Eos % (Auto) 3.5, Baso % (Auto) 1.8 H, Absolute N euts (auto) 3.2, Absolute Lymphs (auto) 0.27 L, Nucleated RBC % 0, Sodium 128 L, Potassium 3.4 L, Chloride 96 L, Carbon Dioxide 24.0, Anion Gap 8, BUN 7, Creatinine 0.76, Estim Creat Clear Calc 86.46, Est GFR (MDRD) Af Amer 130, Est GFR (MDRD) Non-Af 107, BUN/Creatinine Ratio 9.3 L, Glucose 103, Calcium 8.1 L, Magnesium 2.0 Microbiology: Microbiology 01/29/24 19:32 Blood Culture (Wb) - Right Hand Blood Culture - Preliminary No growth in 48 hours. 01/29/24 19:26 Blood Culture (Wb) - Anticubital Right Blood Culture - Preliminary No growth in 48 hours. 01/30/24 09:45 Mucosa - Nasopharyngeal Respiratory Panel (PCR) - Final 01/30/24 09:45 Mucosa - Nasopharyngeal Coronavirus COVID-19 PCR - Final 01/28/24 21:05 Urine, Random Legionella Antigen - Final 01/28/24 21:05 Urine, Random Streptococcus pneumoniae Antigen (M - Final 01/28/24 19:55 Mucosa - Throat Streptococcus pyogenes (PCR) - Final 01/28/24 15:55 Mucosa - Nasopharyngeal SARS-CoV-2, Influenza & RSV (PCR) - Final D/C Instructions Discharge Diet: Low fat / Low cholesterol (Please limit your fluid intake to no more than 2 L of fluid daily) and 4000 mg Sodium Diet Discharge Activity: Return to Normal Activity Meaningful Use Info Meaningful Use Diagnoses (Choose all that apply): CHF CHF NICK/ARB ordered at discharge?: Yes Documented LVEF (%): 40 Discharge Plan Admission Admit Date/Time: 01/28/24 17:40 Primary Reason for Your Visit: Shortness of breath Attending Provider: Makenzie Garcia Primary Care Provider: Gonzalez Easton Consulting Providers: Cale Webster; Arcadio Banerjee; Jovon Castanon; Shailesh Chou; Blaise Jain; Antwan Velazquez; Gege Mann; Cole Dos Santos; Olive Hernández; Chery Grande; Rajesh Monge; Oj Potter; Narinder Mccarthy; Esdras Hemphill Instructions Additional Instructions / Restrictions: 1. Please call your primary gambling floor supervisor and get in to see them as soon as available to discuss your change in ejection fraction from 60 to 65% to 40% -The medications we have placed you on are intended to help strengthen your heart muscle however you may need further investigation into why the strength in your heart muscle has changed 2. Please monitor your oxygen saturations throughout the day and if these consistently drop below 88% come to the emergency department 3. Please use your incentive spirometer and the Acapella device to work on deep breathing to help keep your lungs open 4. Please call your primary care physician and asked them to order a basic metabolic profile to be done either on Sunday or Sunday of next week to follow- up your kidney function and electrolytes while you are on the Lasix Discharge Orders/Prescriptions Prescriptions: New spironolactone 25 mg Tablet 12.5 mg PO DAILY Qty: 30 0RF carvedilol [Coreg] 3.125 mg tablet 3.125 mg PO BID Qty: 60 1RF Rx Instructions: must administer with a meal/food furosemide [Lasix] 40 mg tablet 40 mg PO DAILY Qty: 30 1RF Continued niacin 1,000 mg tablet extended release 24 hr 2,000 mg PO DAILY nitroglycerin 0.4 mg tablet, sublingual 0.4 mg sublingual UD ramipril 10 mg capsule 10 mg PO BID ezetimibe 10 mg tablet 10 mg PO DAILY aspirin 325 mg tablet 325 mg PO QHS lansoprazole [Prevacid] 30 mg capsule,delayed release(DR/EC) 30 mg PO DAILY cholecalciferol (vitamin D3) [Vitamin D3] 125 mcg (5,000 unit) tablet 125 mcg PO QHS Discontinued amlodipine 10 mg tablet 10 mg PO DAILY Referrals / Follow Up: Gonzalez Easton MD [Primary Care Provider] - In 1 Week Willi Venegas DO [Med Staff - Active Staff] - See Referral Note (as scheduled) Disposition Disposition (needs filled in before D/C Order can be placed): Home, Self Care Charges/Coding Visit Charges Inpatient E&M: 11126 Disch Hosp >30min
[2024-02-01] MEDS: Potassium Chloride Oral Tablet 20 MEQ 60 MEQ PO (14:16)
--- NOTE | 2024-02-01 14:45 | CASEMGMT ---
RN CM into pt room, pt dressed with at bedside. Pt did not qualify for home oxygen. Discussed pt strength and if he felt HHC would be helpful. Pt states she does not feel it is. Pt seemed hesitant but stated he did not want HHC. Patient was provided a list of HHC providers including quality and resource use data and consistent with the patient?s preferred geographic region, medical needs, and insurance network were provided from the [employer]. Pt is aware that should he get home and change his mind he can notify his PCP. Pt denies further homegoing needs at this time.
== END 2024-02-01 14:58 | disposition home or self-care (01) | DRG 291 ==
LOC: ED 17:01 → MS3 18:05
PROVIDERS: Emergency Provider Emergency Medicine; PCP Internal Medicine; Visit Provider Internal Medicine
DX: I11.0 Hypertensive heart disease with heart failure (principal); I50.21 Acute systolic (congestive) heart failure; E87.1 Hypo-osmolality and hyponatremia; C90.00 Multiple myeloma not having achieved remission; I27.20 Pulmonary hypertension, unspecified; I42.9 Cardiomyopathy, unspecified; K21.9 Gastro-esophageal reflux disease without esophagitis; D64.9 Anemia, unspecified; F10.10 Alcohol abuse, uncomplicated; I34.0 Nonrheumatic mitral (valve) insufficiency; E55.9 Vitamin D deficiency, unspecified; I25.10 Atherosclerotic heart disease of native coronary artery without angina pectoris; E78.5 Hyperlipidemia, unspecified; E87.6 Hypokalemia; G47.33 Obstructive sleep apnea (adult) (pediatric); R09.02 Hypoxemia; Z72.0 Tobacco use; Z11.52 Encounter for screening for COVID-19; Z79.82 Long term (current) use of aspirin; Z79.899 Other long term (current) drug therapy; Z95.5 Presence of coronary angioplasty implant and graft
CPT/HCPCS: 36415; 71046; 71275; 80048; 80053; 83735; 83880; 84100; 84145; 84443; 84484; 85025; 87040; 87449; 87631; 87633; 87635; 87641; 87651; 93005; 93306; 94668; 94762; 97116; 97162; 97530; 99285; J7050; Q9957; Q9967; A4216; C8929; J1940